=== PATIENT | male | born 1960 | race Two or more races ===

== ENCOUNTER 2022-11-22 23:12 | Inpatient (IN) | payer OTHER, MEDICAID ==
[~2022-11-22] VITALS: Ht 177.8 cm; Wt 103.4 kg
[2022-11-22 23:12] VITALS: BP 122/70
--- NOTE | 2022-11-22 23:22 | NUR ---
DR HUIZAR EXAMINING PT AT THIS TIME
--- NOTE | 2022-11-22 23:44 | NUR ---
PT BIBA BLS ER BED 7
--- NOTE | 2022-11-22 23:58 | NUR ---
Dr. Mensah at bedside assessing patient.
[2022-11-23] VITALS (13 sets, daily range): BP systolic 70–127; BP diastolic 40–75
[2022-11-23] MEDS ORDERED: NACL 0.9% 2,000 ML IV ONE (00:05)
[2022-11-23] MEDS ORDERED: PIPERACILLIN/TAZOBACTAM 3.375 GM in DEXTROSE 5% 50 ML IV ONE (00:05)
--- NOTE | 2022-11-23 00:05 | NUR ---
Patient resting in gown, in bed, A/Ox4, chest rise and fall symmetrical, no c/o pain or s/s of distress, patient on monitor, seizure pads/precautions in place.
--- NOTE | 2022-11-23 00:06 | NUR ---
Note caty in ED - 11/23/22 at 0006 by [id number] Patient resting in bed, A/Ox4, chest rise and fall symmetrical, no c/o pain or s/s of distress, patient on monitor, seizure pads/precautions in place.
--- NOTE | 2022-11-23 00:11 | NUR ---
XRAY AT BEDSIDE
--- NOTE | 2022-11-23 00:23 | NUR ---
64YR OLD MALE BIB EMS C/O GEN WEAKNESS . PT IS FROM THE STREETS. A&OX4 PT DENIES CP OR SOB . PT STATES HAVING GEN WEAKNESS FOR DAYS CASANDRA LEGS THIGHS, LOWER BACK MULTIPLE ABRASIONS SCABS ON CASANDRA KNEES. PT HAS BEEN FALLING DUE TO WEAKNESS. ON BEDSIDE MONITOR. PT IS POOR HISTORIAN. HOB IS FLAT PT IS HYPOTENSIVE. BED AT LOWEST POSITION NKDA UNKNOWN
[2022-11-23 00:27] LABS: BASOPHILS % (AUTO) 0.4 % (0.0-2.0); EOSINOPHILS # (AUTO) 0.1 K/uL (0-0.4); EOSINOPHILS % (AUTO) 1.2 % (0.0-4.0); HEMATOCRIT 36.7 % (36-52); HEMOGLOBIN 12.4 g/dL (12.0-18.0); LYMPHOCYTES # (AUTO) 1.1 K/uL (2.0-11.5); LYMPHOCYTES % (AUTO) 11.9 % (20.5-51.1); MEAN CORPUSCULAR HEMOGLOBIN 31 pg (27-31); MEAN CORPUSCULAR HGB CONC 34 g/dL (33-37); MEAN CORPUSCULAR VOLUME 92.9 fL (80-94); MONOCYTES # (AUTO) 0.5 K/uL (0.8-1.0); MONOCYTES % (AUTO) 5.2 % (1.7-9.3); NEUTROPHILS # (AUTO) 7.8 K/uL (1.8-7.7); NEUTROPHILS % (AUTO) 81.3 % (42.2-75.2); PLATELET COUNT (AUTO) 105 K/uL (140-450); RED BLOOD CELL COUNT(AUTO) 3.95 MIL/uL (4.20-6.10); WHITE BLOOD COUNT (AUTO) 9.6 K/uL (4.8-10.8)
[2022-11-23] MEDS ORDERED: PIPERACILLIN/TAZOBACTAM 3.375 GM VIAL IV ONE ×2 (00:53→21:19)
--- NOTE | 2022-11-23 03:39 | NUR ---
PT RESTING IN BED ON BEDSIDE MONITOR. HOB ELEVTED. RESP EVEN AND UNLABORED.
[2022-11-23 04:26] LABS: ALBUMIN 2.6 g/dL (3.4-5.0); ANION GAP 26.5 (8-16); ASPARTATE AMINOTRANSFERASE 829 U/L (15-37); CARBON DIOXIDE 19.8 mmol/L (21-32); CHLORIDE 87 mmol/L (98-107); GFR ARICAN-AMERICAN 19 mL/min (>90); GLUCOSE 395 mg/dL (74-106); LIPASE 27 U/L (73-393); POTASSIUM 4.3 mmol/L (3.5-5.1); SODIUM SERUM 129 mmol/L (136-145); TOTAL BILIRUBIN 1.1 mg/dL (0.0-1.0)
[2022-11-23 04:29] LABS: CREATININE 4.1 mg/dL (0.6-1.3); UREA NITROGEN, BLOOD 91 mg/dL (7-18)
[2022-11-23] MEDS ORDERED: NACL 0.9% 1,000 ML IV ONE (04:45)
--- NOTE | 2022-11-23 05:18 | NUR ---
PENDING ADMISSION ORDERS. COVID SWAB COLLECTED AND SENT
[2022-11-23 05:22] LABS: BILIRUBIN,URINE 1+ (NEGATIVE); BLOOD, URINE 3+ (NEGATIVE); LEUKOCYTE ESTERASE ,URINE TRACE (NEGATIVE); NITRITE, URINE POSITIVE (NEGATIVE); PH,URINE 5.5 (5.0-9.0); UGLUCOSE 1+ (NEGATIVE)
[2022-11-23 05:25] LABS: APPEARANCE,URINE CLOUDY (CLEAR); COLOR,URINE BROWN (YELLOW)
[2022-11-23 05:37] LABS: BARBITURATE, URINE NEGATIVE ng/ml (NEG <=200); BENZODIAZEPINE, URINE NEGATIVE ng/mL (NEG <=200); CANNABINOID, URINE NEGATIVE ng/mL (NEG <=50); COCAINE, URINE NEGATIVE ng/mL (NEG <=300); OPIATE, URINE NEGATIVE ng/mL (NEG <=2000); PHENCYCLIDINE SCREEN,URINE NEGATIVE ng/mL (NEG <=25)
[2022-11-23 05:38] LABS: RBC,URINE 0-5 /HPF (0-5); WBC,URINE 0-5 /HPF (0-5)
[2022-11-23 05:39] LABS: CALCIUM OXALATE CRYSTALS,UR None Seen /HPF (None Seen); HYALINE CASTS, URINE None Seen /LPF (None Seen); TRICHOMONAS,URINE None Seen /HPF (None Seen); TRIPLE PHOSPHATE CRYSTAL,UR None Seen /HPF (None Seen); URIC ACID CRYSTALS,URINE None Seen /HPF (None Seen); URINE AMORPHOUS URATE 3+ /HPF (None Seen); YEAST,URINE None Seen /HPF (None Seen)
[2022-11-23 05:40] LABS: OTHER CASTS, URINE SPERMS MANY /LPF (None Seen)
--- NOTE | 2022-11-23 05:47 | NUR ---
PHOTOS TAKEN OF WOUNDS ON FEET
[2022-11-23] MEDS: NACL 0.9% 1,000 ML IV SCH ×4 (06:16→21:55)
[2022-11-23] MEDS ORDERED: LORazepam 2 MG/ML VIAL IVP ONE (06:50)
[2022-11-23] MEDS ORDERED: LORazepam 2 MG/ML VIAL IM/IVP STA (07:18)
--- NOTE | 2022-11-23 07:31 | NUR ---
pt w/ active tremors. MD HOLLINS called and made aware.
--- NOTE | 2022-11-23 07:31 | NUR ---
REPORT RECEIVED FROM COREY ARCINIEGA. ASSUMED CARE AT THIS TIME
[2022-11-23] MEDS ORDERED: chlordiazePOXIDE 25 MG CAP PO SCH (07:40)
--- NOTE | 2022-11-23 08:00 | NUR ---
PT UNABLE TO TOLERATE PO. MD HOLLINS AWARE. NO NEW ORDERS RECEIVED
--- NOTE | 2022-11-23 08:45 | NUR ---
PT HR REMAINS IN THE 120S AND RECTAL TEMP 103.0. PT UNRESPONSIVE TO PAINFUL STIMULI. DR PAN AT BEDSIDE, ADMITTING DR HOLLINS CONTACTED TO INFORM HIM OF CT HEAD ORDER. TORB ORDER FOR TYLENOL 650MG RECTAL AND TO TRANSFER TO ICU. ORDERS PLACED.
--- NOTE | 2022-11-23 08:52 | NUR ---
PT TAKEN TO CT VIA [place]. ACCOMPANIED BY RN
[2022-11-23] MEDS ORDERED: ACETAMINOPHEN 650 MG SUPP RC ONE (09:15)
--- NOTE | 2022-11-23 09:20 | NUR ---
PATIENT HAS BEEN SCREENED AND CATEGORIZED MODERATE NUTRITION RISK. PATIENT WILL BE SEEN WITHIN 3-5 DAYS OF ADMISSION. 11/23/22-11/28/[address] Addendum: 11/24/22 at [address] FNS CONSULT HAS BEEN RECEIVED FOR WOUNDS ON 11/24/22. PATIENT HAS BEEN RE-SCREENED HIGH RISK AND WILL BE SEEN WITHIN 1-2 DAYS OF RECEIVING THE FNS CONSULT. 11/25/22-11/26/[address]
[2022-11-23] MEDS: ACETAMINOPHEN 650 MG SUPP RC PRN ×2 (09:25→16:52)
--- NOTE | 2022-11-23 10:02 | NUR ---
MD HOLLINS CONTACTED VIA HOSPITAL TEXT REGARDING PELAYO CONTINUATION.
--- NOTE | 2022-11-23 10:06 | NUR ---
ORDER RECEIVED FROM MD HOLLINS . ORDERS CARRIED OUT D/C PIERCE
--- NOTE | 2022-11-23 10:35 | NUR ---
Patient will be admitted to care of MD HOLLINS. Admited to ICU. Will go to room 5. Belongings list completed. Report to AUGUSTA MORRISON .
[2022-11-23] MEDS ORDERED: LORazepam 2 MG/ML VIAL IVP PRN (10:40)
--- NOTE | 2022-11-23 10:45 | NUR ---
Received report from ER nurse Daysi. Received pt altered, unable to answer or nod to questions. On O2@4L/min via nasal cannula. Sinus tachy on the monitor. NPO at this time. Pt incontinent both bowel and bladder. Peripheral IV 18 gauge on right AC intact and patent infusing NS@200ml/hr. Peripheral IV 18 gauge 18 gauge on right hand saline locked. Safety precautions in place.
[2022-11-23] MEDS ORDERED: NOREPINEPHRINE 4 MG/4 ML VIAL IV ONE (11:29)
--- NOTE | 2022-11-23 11:38 | NUR ---
Seen and examined by Dr. Calhoun. New order received to insert PICC line, start levophed and precedex drip and discontinue librium and ativan. Orders noted and carried out.
--- NOTE | 2022-11-23 11:50 | NUR ---
Seen and examined by Dr. Cm.
--- NOTE | 2022-11-23 12:12 | NUR ---
Spoke to Dr. Ruiz on telephone regarding BUN and creatinine results. Per Dr. Ruiz, okay to start PICC line.
--- NOTE | 2022-11-23 12:25 | NUR ---
PICC line nurse Brad at bedside.
--- NOTE | 2022-11-23 13:00 | NUR ---
CXR done at bedside.
[2022-11-23] MEDS: DEXMEDETOMIDINE HCL 400 MCG in NACL 0.9% 96 ML IV PRN ×2 (13:33→22:00)
[2022-11-23] MEDS: PIPERACILLIN/TAZOBACTAM 3.375 GM in DEXTROSE 5% 50 ML IV SCH ×2 (13:51→21:55)
--- NOTE | 2022-11-23 14:52 | NUR ---
REVIEWED PMHX; CXR 11/23/22; PATIENT PRESENTING WITH INCREASED SOB AT 40 BPM SATURATION 92% ON SUPPLEMENTAL OXYGEN AT 4 LPM VIA NC BREATH SOUNDS COARSE RHONCHI BILATERAL GOOD CHEST RISE VERBALLY NON RESPONSIVE TO SAGGER FILLER VERBAL COMMANDS PATIENT APPROPRIATE FOR HHN THERAPY
[2022-11-23] MEDS ORDERED: IPRATROPIUM 0.02% 0.5 MG/2.5 ML NEBU INH ONE (15:07)
[2022-11-23] MEDS ORDERED: ALBUTEROL 0.083% 2.5 MG/3 ML NEBU INH ONE (15:07)
[2022-11-23] MEDS ORDERED: IPRATROPIUM 0.02% 0.5 MG/2.5 ML NEBU INH PRN (15:15)
[2022-11-23] MEDS ORDERED: ALBUTEROL 0.083% 2.5 MG/3 ML NEBU INH PRN (15:15)
[2022-11-23] MEDS: NOREPINEPHRINE 4 MG in DEXTROSE 5% 250 ML IV PRN ×2 (15:42→22:03)
--- NOTE | 2022-11-23 15:45 | NUR ---
Inserted greene catheter using sterile technique with good urine return. Pt tolerated procedure well.
--- NOTE | 2022-11-23 16:15 | NUR ---
Pt with fever. Cooling measures in place. See emar for medication administration.
--- NOTE | 2022-11-23 19:20 | NUR ---
Endorsed to transcript evaluator nurse Haskins for continuity of care.
--- NOTE | 2022-11-23 19:30 | NUR ---
Report received from AUGUSTA RN, PT unresponsive incomprehensible moaning follows minimal command vitals signs stable febrile ongoing cooling measure, pt unresponsive incomprehensible moaning, body tremors, generalized weakness but moved all extremities, multiple skin wounds , ongoing education, reorientation to the unit to alleviates anxiety will continue to monitor ans treat as per care plan
[2022-11-23] MEDS: ALBUTEROL 0.083% 2.5 MG/3 ML NEBU INH SCH (19:49)
[2022-11-23] MEDS: IPRATROPIUM 0.02% 0.5 MG/2.5 ML NEBU INH SCH (19:49)
[2022-11-24] VITALS (24 sets, daily range): BP systolic 100–136; BP diastolic 55–96
[2022-11-24] MEDS ORDERED: PIPERACILLIN/TAZOBACTAM 3.375 GM VIAL IV ONE (05:24)
[2022-11-24 05:45] LABS: BASOPHILS # (AUTO) 0.1 K/uL (0.00-0.22); BASOPHILS % (AUTO) 0.5 % (0.0-2.0); EOSINOPHILS % (AUTO) 0.2 % (0.0-4.0); HEMATOCRIT 29.9 % (36-52); HEMOGLOBIN 10.2 g/dL (12.0-18.0); LYMPHOCYTES # (AUTO) 1.8 K/uL (2.0-11.5); LYMPHOCYTES % (AUTO) 16.1 % (20.5-51.1); MEAN CORPUSCULAR HEMOGLOBIN 31 pg (27-31); MEAN CORPUSCULAR HGB CONC 34 g/dL (33-37); MEAN CORPUSCULAR VOLUME 91.2 fL (80-94); MONOCYTES # (AUTO) 0.4 K/uL (0.8-1.0); MONOCYTES % (AUTO) 3.7 % (1.7-9.3); NEUTROPHILS # (AUTO) 8.9 K/uL (1.8-7.7); NEUTROPHILS % (AUTO) 79.5 % (42.2-75.2); PLATELET COUNT (AUTO) 66 K/uL (140-450); RED BLOOD CELL COUNT(AUTO) 3.27 MIL/uL (4.20-6.10); RED CELL DISTRIBUTION WIDTH 16.1 % (11.6-13.7); WHITE BLOOD COUNT (AUTO) 11.2 K/uL (4.8-10.8)
[2022-11-24] MEDS: NACL 0.9% 1,000 ML IV SCH ×2 (05:46→07:46)
[2022-11-24] MEDS: PIPERACILLIN/TAZOBACTAM 3.375 GM in DEXTROSE 5% 50 ML IV SCH ×3 (05:46→20:01)
[2022-11-24] MEDS: ALBUTEROL 0.083% 2.5 MG/3 ML NEBU INH SCH ×3 (06:58→18:29)
[2022-11-24] MEDS: IPRATROPIUM 0.02% 0.5 MG/2.5 ML NEBU INH SCH ×3 (06:58→18:29)
--- NOTE | 2022-11-24 10:40 | NUR ---
melva zamarripa here , aware of low urine output
--- NOTE | 2022-11-24 10:50 | NUR ---
Bedside report given to DIPAK RN at the bedside for continuity of care as athis time vitals signs stable no changes in care plan and condition.
--- NOTE | 2022-11-24 10:52 | NUR ---
bed bath given to patient at this time with night nurse
--- NOTE | 2022-11-24 11:12 | NUR ---
dr orantes here aware of low urine output, stated he ordered bicarb, awaiting lab results
--- NOTE | 2022-11-24 11:56 | NUR ---
US AT BEDSIDE AT THIS TIME ASSESSING THE KIDNEY FUNCTION
[2022-11-24 12:00] LABS: ALBUMIN 1.1 g/dL (3.4-5.0); ANION GAP 22.2 (8-16); ASPARTATE AMINOTRANSFERASE 2043 U/L (15-37); CARBON DIOXIDE 17.4 mmol/L (21-32); CHLORIDE 100 mmol/L (98-107); GFR ARICAN-AMERICAN 14 mL/min (>90); GLUCOSE 213 mg/dL (74-106); POTASSIUM 4.6 mmol/L (3.5-5.1); SODIUM SERUM 135 mmol/L (136-145)
[2022-11-24 12:06] LABS: CREATININE 5.4 mg/dL (0.6-1.3); UREA NITROGEN, BLOOD 113 mg/dL (7-18)
[2022-11-24] MEDS: SODIUM BICARBONATE 8.4% 50 MEQ in DEXT 5% / NACL 0.45% 1,000 ML IV SCH ×2 (12:13→19:58)
--- NOTE | 2022-11-24 12:41 | NUR ---
DR URIBE (HOSPITALIST) HERE AWARE OF LAB RESULTS
--- NOTE | 2022-11-24 12:57 | NUR ---
WOUND CARE NURSE HERE AT BEDSIDE
--- NOTE | 2022-11-24 13:30 | NUR ---
WOUND CARE EVALUATION NOTES: REASON FOR EVALUATION: BILATERAL FOOT WOUNDS AND MULTIPLE SCABS. WOUND ASSESSMENT COMPLETED ON THIS 89 Y/O MALE ADMITTED TO ICU FOR RHABDOMYOLYSIS AND SEPSIS. PATIENT IS HOMELESS. PAST MEDICAL HISTORY INCLUDES DM II, ETOH ABUSE. ALL ABOVE INFORMATION WAS OBTAINED FROM THE ADMISSION H&P. PATIENT IS AAOX1, VERBAL, RESPONDS TO PAIN STIMULI. SKIN IS WARM TO TOUCH. HAS GENERALIZED BILATERAL LOWER EXTREMITY EDEMA. ORAL MUCOSAL MEMBRANES DRY. REQUIRES ASSISTANCE WITH TURNING. PLAN OF CARE AND PRESSURE PREVENTATIVE MEASURES DISCUSSED WITH PATIENT AND PRIMARY RN. PATIENT UNABLE TO COMPREHEND, REINFORCEMENT NEEDED. PATIENT ADMITTED WITH BILATERAL PLANTAR FOOT WOUNDS AND MULTIPLE SCABS THROUGHOUT BODY. COMORBIDITIES RELATED TO FURTHER SKIN BREAKDOWN SUCH DECREASED MOBILITY, HOMELESSNESS, AND S/S OF DEHYDRATION. INTEGUMENTARY: - RIGHT UPPER PLANTAR FOOT 5 X 7 X 0.1 CM OPEN BLISTER WOUND. WOUND BED DRY, PINK, MIXED WITH SPOTS OF COMPLETELY HEALED GRANULATION TISSUE. PERIWOUND DRY, INTACT. - LEFT MEDIAL DORSAL TO PLANTAR FOOT 4 X 4 X 0.1 UNSTAGEABLE WOUND. WOUND BED BLACK, NON-BLANCHABLE, ROUGH, NO DISCHARGE. PERIWOUND DRY, INTACT. - RIGHT KNEE CLOSED SCAB 7 X 3 X 0 CM. NO DISCHARGE, PERIWOUND INTACT. - RLE SCAB 3 X 2 X 0 CM. NO DISCHARGE. PERIWOUND INTACT. - LEFT KNEE CLOSED SCAB 5.5 X 3.5 X 0 CM. NO DRAINAGE, PERIWOUND INTACT. - RIGHT BUTTOCK ECCHYMOSIS 5 X 3 X 0 CM. NO DISCHARGE. PERIWOUND INTACT. - PERINEAL AND SCROTAL MOISTURE ASSOCIATED DERMATITIS. PERIWOUND RED, INTACT. - LEFT HIP REDNESS 10 X 7 X 0 CM. NO DISCHARGE. PERIWOUND INTACT. RECOMMENDATIONS: - RIGHT UPPER PLANTAR FOOT: CLEANSE WITH NS, PAT DRY, COVER WITH GAUZE, AND SECURE WITH ELMO BANDAGE DAILY AND PRN IF SOILED. - LEFT MEDIAL DORSAL TO PLANTAR FOOT: CLEANSE WITH NS, PAT DRY, APPLY BETADINE SWAB ON WOUND AND PERIWOUND, COVER WITH GAUZE, AND SECURE WITH ELMO BANDAGE DAILY AND PRN IF SOILED. - RIGHT KNEE CLOSED SCAB: CLEANSE WITH NS, PAT DRY AND LEAVE VIANCA Q3DAYS AND PRN IF SOILED. - RLE SCAB: CLEANSE WITH NS, PAT DRY, AND LEAVE VIANCA Q3DAYS AND PRN IF SOILED. - LEFT KNEE CLOSED SCAB: CLEANSE WITH NS, PAT DRY, AND LEAVE VIANCA Q3DAYS AND PRN IF SOILED. - RIGHT BUTTOCK ECCHYMOSIS: CLEANSE WITH NS, PAT DRY, AND COVER WITH ISLAND DRESSING Q3DAYS AND PRN IF SOILED. - PERINEAL AND SCROTAL MOISTURE ASSOCIATED DERMATITIS: CLEANSE WITH SOAPY WATER OR NS, PAT DRY, APPLY HYDRAGUARD CREAM THROUGHOUT AREA, AND LEAVE VIANCA DAILY AND PRN IF SOILED. - LEFT HIP REDNESS:CLEANSE WITH NS, PAT DRY, APPLY FOAM DRESSING FOR PROTECTION Q3 DAYS AND PRN IF SOILED. - OFFLOAD BILATERAL HEELS BY PLACING BILATERAL HEEL PROTECTORS. - TURN AND REPOSITION PATIENT Q2H TO LEFT AND RIGHT SIDE TO OFFLOAD SACRALCOCCYX. - ASSESS AND MONITOR SKIN CONDITION DURING POSITION CHANGE. PLEASE PAY ATTENTION TO SACRALCOCCYX AND HEELS. - KEEP SKIN DRY AND CLEAN AT ALL TIMES. - RD CONSULT - CUSTOMER DATA TECHNICIAN CONSULT. RECOMMENDATIONS DISCUSSED WITH PRIMARY RN. WILL FOLLOW-UP PATIENT Q7-10 DAYS AND PRN. PLEASE CONTACT WOUND CARE NURSE FOR ANY CONCERNS AND CHANGES IN WOUND CONDITION.
[2022-11-24] MEDS: NOREPINEPHRINE 4 MG in DEXTROSE 5% 250 ML IV PRN (14:39)
--- NOTE | 2022-11-24 16:02 | NUR ---
DC PLANNING PATIENT IS A 64 YEAR OLD HOMELESS MALE ADMITTED 11/22/2022 FOR ELEVATEDTROPONIN,UTI,RHABDOMYOLYSIS,LEANDRO,GENERALIZED WEAKNESS AND ALCOHOL ABUSE. PT HAS HX OF DM2 AND ALCOHOL ABUSE . AMANDA FOLLOWING .CM TO FOLLOW Addendum: 11/26/22 at 1627 by WILLIE REYES CM DC PLANNING PT WAS INTUBATED TODAY FOR DESATURATION. ON PRECEDEX,LEVOPHED,FENTANYL,AND PROPOFOL DRIPS. ZOSYN TO CONTINUE.AMANDA FOLLOWING.CM TO FOLLOW
--- NOTE | 2022-11-24 18:35 | NUR ---
PT RECEIVING BREATHING TREATMENT AT THIS TIME
[2022-11-24] MEDS: LORazepam 1 MG TAB PO SCH (20:36)
[2022-11-24] MEDS: LORazepam 2 MG/ML VIAL IVP PRN (22:16)
--- NOTE | 2022-11-24 23:33 | NUR ---
LOWERED FIO2 TO 2LNC. SATS 97%. NO SOB NOTED
[2022-11-25] VITALS (23 sets, daily range): BP systolic 97–134; BP diastolic 50–85
[2022-11-25] MEDS: LORazepam 2 MG/ML VIAL IVP PRN ×3 (00:27→07:41)
[2022-11-25] MEDS: SODIUM BICARBONATE 8.4% 50 MEQ in DEXT 5% / NACL 0.45% 1,000 ML IV SCH ×4 (00:41→21:08)
[2022-11-25] MEDS: HYDRAGUARD CREAM TP SCH ×2 (00:41→13:33)
[2022-11-25] MEDS: DEXMEDETOMIDINE HCL 400 MCG in NACL 0.9% 96 ML IV PRN ×2 (03:22→08:37)
[2022-11-25 05:42] LABS: BASOPHILS # (AUTO) 0.1 K/uL (0.00-0.22); BASOPHILS % (AUTO) 0.6 % (0.0-2.0); EOSINOPHILS % (AUTO) 0.2 % (0.0-4.0); HEMATOCRIT 27.6 % (36-52); HEMOGLOBIN 9.6 g/dL (12.0-18.0); LYMPHOCYTES # (AUTO) 0.3 K/uL (2.0-11.5); LYMPHOCYTES % (AUTO) 3.7 % (20.5-51.1); MEAN CORPUSCULAR HEMOGLOBIN 31 pg (27-31); MEAN CORPUSCULAR HGB CONC 35 g/dL (33-37); MONOCYTES # (AUTO) 0.3 K/uL (0.8-1.0); MONOCYTES % (AUTO) 3.7 % (1.7-9.3); NEUTROPHILS # (AUTO) 8.6 K/uL (1.8-7.7); NEUTROPHILS % (AUTO) 91.8 % (42.2-75.2); PLATELET COUNT (AUTO) 51 K/uL (140-450); RED BLOOD CELL COUNT(AUTO) 3.07 MIL/uL (4.20-6.10); RED CELL DISTRIBUTION WIDTH 16.2 % (11.6-13.7); WHITE BLOOD COUNT (AUTO) 9.4 K/uL (4.8-10.8)
[2022-11-25] MEDS: PIPERACILLIN/TAZOBACTAM 3.375 GM in DEXTROSE 5% 50 ML IV SCH ×3 (06:01→21:07)
[2022-11-25] MEDS: LORazepam 1 MG TAB PO SCH ×3 (06:05→21:07)
[2022-11-25] MEDS: FOLIC ACID 1 MG TAB PO SCH (09:00)
--- NOTE | 2022-11-25 09:14 | NUR ---
DR URIBE CALLED FOR UPDATE
[2022-11-25] MEDS: MULTIVITAMIN 1 TAB PO SCH (10:21)
[2022-11-25] MEDS: THIAMINE 100 MG TAB PO SCH (10:22)
--- NOTE | 2022-11-25 10:33 | NUR ---
DR HARRELL HERE WILL KALYAN JI FOR HD
[2022-11-25 14:10] LABS: CKMB RELATIVE INDEX 0.7 (0.0-2.5); CREATINE KINASE MB 156.7 ng/mL (0-3.6)
[2022-11-25] MEDS: IPRATROPIUM 0.02% 0.5 MG/2.5 ML NEBU INH SCH ×3 (16:20→20:30)
[2022-11-25] MEDS: ALBUTEROL 0.083% 2.5 MG/3 ML NEBU INH SCH ×3 (16:20→20:30)
--- NOTE | 2022-11-25 16:45 | NUR ---
11/25/22 RD INITIAL ASSESSMENT COMPLETED PLEASE REFER TO NUTRITION ASSESSMENT UNDER CARE ACTIVITY FOR ESTIMATED NUTRITIONAL NEEDS. 1. MONITOR NPO STATUS 2. WHEN/IF MEDICALLY APPROPRIATE TO BEGIN PO DIET, RECOMMEND CCHO 60 GM DIET WITH GERA BID FOR WOUND SUPPORT TOLERATED -GERA BID PROVIDES 160 KCAL AND [address] TO FOLLOW-UP 2-3 DAYS, HIGH RISK REVIEWED BY NUHA HUSSEIN RD
--- NOTE | 2022-11-25 19:24 | NUR ---
DAVIONAR TO RONNELL(RN)
[2022-11-26] VITALS (25 sets, daily range): BP systolic 84–129; BP diastolic 48–72
[2022-11-26] MEDS: HYDRAGUARD CREAM TP SCH ×2 (00:28→15:00)
[2022-11-26] MEDS: DEXMEDETOMIDINE HCL 400 MCG in NACL 0.9% 96 ML IV PRN ×2 (00:32→04:31)
[2022-11-26] MEDS: LORazepam 2 MG/ML VIAL IVP PRN (04:29)
[2022-11-26 05:31] LABS: BASOPHILS % (AUTO) 0.2 % (0.0-2.0); EOSINOPHILS % (AUTO) 0.4 % (0.0-4.0); HEMOGLOBIN 10.3 g/dL (12.0-18.0); LYMPHOCYTES # (AUTO) 0.3 K/uL (2.0-11.5); LYMPHOCYTES % (AUTO) 3.9 % (20.5-51.1); MEAN CORPUSCULAR HEMOGLOBIN 31 pg (27-31); MEAN CORPUSCULAR HGB CONC 34 g/dL (33-37); MEAN CORPUSCULAR VOLUME 89.4 fL (80-94); MONOCYTES # (AUTO) 0.2 K/uL (0.8-1.0); MONOCYTES % (AUTO) 2.6 % (1.7-9.3); NEUTROPHILS # (AUTO) 7.6 K/uL (1.8-7.7); NEUTROPHILS % (AUTO) 92.9 % (42.2-75.2); PLATELET COUNT (AUTO) 52 K/uL (140-450); RED BLOOD CELL COUNT(AUTO) 3.36 MIL/uL (4.20-6.10); RED CELL DISTRIBUTION WIDTH 16.5 % (11.6-13.7); WHITE BLOOD COUNT (AUTO) 8.2 K/uL (4.8-10.8)
[2022-11-26] MEDS: SODIUM BICARBONATE 8.4% 50 MEQ in DEXT 5% / NACL 0.45% 1,000 ML IV SCH ×2 (05:42→13:57)
[2022-11-26] MEDS: PIPERACILLIN/TAZOBACTAM 3.375 GM in DEXTROSE 5% 50 ML IV SCH (05:42)
[2022-11-26] MEDS: LORazepam 1 MG TAB PO SCH (05:44)
--- NOTE | 2022-11-26 07:10 | NUR ---
RECEIVED BEDSIDE REPORT FROM [facility] RN, FOR CONTINUITY OF CARE. PT LETHARGIC, RESPONDS TO EXTERNAL STIMULI, PUPILS BRISK RXN TO LIGHT 2MM, MINIMAL MOVEMENT OF EXTREMITIES. SR ON MONITOR, PICC TO FAHAD INFUSING LEVOPHED AT 2 MCG/MIN, SODIUM BICARB DRIP AT 150 ML/HR, PRECEDEX AT 1 MCG/KG/HR, AND NS TKO. GENERALIZED NONPITTING EDEMA. ROOM AIR, O2 SAT WNL, TACHYPNEIC. F/C TO GRAVITY. HD CATH TO RIJ. MODERATE WEAKNESS THROUGHOUT. MULTIPLE WOUNDS, SEE WOUND ASSESSMENT. HOB 30 DEGREES, BED LOCKED AND IN LOWEST POSITION.
[2022-11-26] MEDS ORDERED: ALBUTEROL SULFATE/IPRATROPIU 3 ML SOL IH ONE (07:48)
[2022-11-26] MEDS: THIAMINE 100 MG TAB PO SCH (09:00)
[2022-11-26] MEDS: MULTIVITAMIN 1 TAB PO SCH (09:00)
[2022-11-26] MEDS: FOLIC ACID 1 MG TAB PO SCH (09:00)
--- NOTE | 2022-11-26 09:01 | NUR ---
PT BREATHING TX IS NOW DUONEB 3ML Q6WA DUE TO A/A BEING LOW IN STOCK.
[2022-11-26 10:02] LABS: ANION GAP 18.2 (8-16); CARBON DIOXIDE 24.3 mmol/L (21-32); POTASSIUM 4.5 mmol/L (3.5-5.1)
[2022-11-26 10:05] LABS: CREATININE 4.5 mg/dL (0.6-1.3)
--- NOTE | 2022-11-26 10:15 | NUR ---
SEEN AND EXAMINED BY DR. BOUDREAUX, ORDERS TO DOWNGRADE RECEIVED.
--- NOTE | 2022-11-26 10:36 | NUR ---
SEEN AND EXAMINED BY DR. GOLDSTEIN. ORDERS RECEIVED FOR PT TO STAY IN ICU, CANCEL DOWNGRADE, DECREASE SODIUM BICARBONATE DRIP TO 50 ML/HR AND STAT CXR.
--- NOTE | 2022-11-26 10:36 | NUR ---
ROUNDED WITH DR. GOLDSTEIN. ORDERS FOR AN ABG WERE PLACED.
--- NOTE | 2022-11-26 10:45 | NUR ---
ABG RESULTS GIVEN TO DR. GOLDSTEIN NO NEW ORDERS AT THIS TIME. WILL CONTINUE TO MONITOR PT CLOSELY. HR 83 SPO2 93% ON RA.
[2022-11-26] MEDS: PIPERACILLIN/TAZOBACTAM 2.25 GM in DEXTROSE 5% 50 ML IV SCH ×2 (12:02→20:35)
[2022-11-26] MEDS: ACETAMINOPHEN 650 MG SUPP RC PRN (12:27)
--- NOTE | 2022-11-26 12:27 | NUR ---
PT TEMP 100.9, ADMINISTERED PRN TYLENOL SUPPOSITORY.
[2022-11-26] MEDS: ALBUTEROL SULFATE/IPRATROPIU 3 ML SOL IH SCH ×2 (13:01→19:46)
--- NOTE | 2022-11-26 13:29 | NUR ---
NOTIFIED NURSE INCREASE RESP RATE FOR PT BOTH AGREED TO CONTACT ANGELITA ABUT OUR CONCERN. DR GOLDSTEIN GAVE ORDER TO HAVE ER DR GUILLAUME PT
--- NOTE | 2022-11-26 13:29 | NUR ---
NOTIFIED DR. GOLDSTEIN OF INCREASING WORK OF BREATHING AND LETHARGY. ORDERS TO INTUBATE. PROPOFOL AND FENTANYL FOR SEDATION.
[2022-11-26] MEDS ORDERED: fentaNYL citrate 1 MG in NACL 0.9% 80 ML IV PRN (13:30)
[2022-11-26] MEDS ORDERED: PROPOFOL 1000 MG/100 ML PREMIX 100 ML IV ONE (13:31)
--- NOTE | 2022-11-26 13:55 | NUR ---
ORALLY INTUBATED BY ER DOCTOR AND RT. CXR CONFIRMED PLACEMENT.
--- NOTE | 2022-11-26 13:55 | NUR ---
RT RN AND ER DR AT BEDSIDE PREOXYGENATED PT WITH AMBU BAG ER DR INTUBATED WITH 7.5 ETT SECURED AT 26@ GUM. POSITIVE COLOR CHANGE ON CO2 DETECTOR, BILATERL BREATH SOUNDS. CHEST XRAY CONFIRMED PLACEMENT. VENT IS PLUGGED INTO RED OUTLET, ALARMS AUDIBLE AND SET, AMBU BAG AT BEDSIDE. VENT SETTINGS FOR PT IS 450 RR18 +5 50%. PT TOLERATING WELL. ABG TO FOLLOW. WILL CONTINUE TO MONITOR.
[2022-11-26] MEDS: PROPOFOL 1000 MG/100 ML PREMIX 100 ML IV PRN ×2 (14:00→20:34)
[2022-11-26] MEDS: fentaNYL citrate - 50mL vial 2.5 MG in NACL 0.9% 200 ML IV PRN (14:15)
[2022-11-26] MEDS ORDERED: ALBUMIN HUMAN 25% 100 ML IV ONE (14:59)
--- NOTE | 2022-11-26 15:07 | NUR ---
DC PLANNING ATTEMPTED TO MEET PT AT BEDSIDE TP COMPLETE ASSESSMENT, HOWEVER PT CURRENTLY BEING INTUBATED. SW TO FOLLOW Addendum: 11/28/22 at 1617 by Elmira Sharpe PER NOTES, PT UNABLE TO FOLLOW COMMANDS. KATERINE OUTREACHED TO ICU NURSE CHAO TO INQUIRE ON ANY VISITORS AND OR CALLS FOR PT. CHAO REPORTS NO CALLS AND OR VISITORS SEEN AT BEDSIDE. Addendum: 12/03/22 at 1312 by Elmira SOMMERS outreached to Misael malhotra, and spoke with Paz pd medical receptionist medical assistant. Paz reports being unable to provide information even if information were found on pt. Addendum: 12/04/22 at 0927 by Elmira Sharpe SS OUTREACHED TO [facility], AND SPOKE WITH PAZ. INQUIRED ON MISSING PERSONS REPORTS FOR PT. PAZ REPORTS NO MISSING REPORTS SHOWING FOR PT. OUTREACHED TO [facility], , AND SPOKE WITH CATIA, YOKOIRED ON MISSING PERSON, NO MISSING PERSON REPORTS FOUND FOR PT. OUTREACHED TO [facility], AND SPOKE WITH TARIQ WHO REPORTED NO MISSING REPORTS FOUND FOR PT. OUTREACHED TO [facility], AND SPOKE WITH CIERRA, CIERRA REPORTS NO MISSING PERSON REPORTS FOUND FOR PT.
[2022-11-26] MEDS ORDERED: VASOPRESSIN 20 UNITS in NACL 0.9% 250 ML IV SCH (15:10)
[2022-11-26] MEDS ORDERED: ALBUMIN HUMAN 25% 100 ML IV SCH (15:15)
[2022-11-26] MEDS: NOREPINEPHRINE 4 MG in DEXTROSE 5% 250 ML IV PRN (15:16)
[2022-11-26] MEDS ORDERED: ROCURONIUM 50 MG/5 ML VIAL IV ONE (15:45)
[2022-11-26] MEDS ORDERED: ETOMIDATE 20 MG/10 ML VIAL IVP ONE (15:45)
--- NOTE | 2022-11-26 16:37 | NUR ---
PAGED REGARDING ABG RESULTS WAITING FOR CALL BACK. ETT SECURED @26 TEETH/GUM. VENT ALARMS ON AND FUNCTIONING. PT ON DIALYSIS AT THIS TIME.
--- NOTE | 2022-11-26 17:30 | NUR ---
ADVANCED NGT 9 CM PER CXR IMPRESSION.
--- NOTE | 2022-11-26 19:20 | NUR ---
ENDORSED BEDSIDE REPORT TO ROUGH RICE TENDER RN FOR CONTINUITY OF CARE.
--- NOTE | 2022-11-26 19:32 | NUR ---
Received report from day shift RN. The patient is AOx0, intubated today, sadated, NG tube to right nare, had HD today with 1L out put via right intrajugular crystal catheter. Right upper arm picc infusing Levo at 10mcg, sodium bicarb at 50ml/hr , propfol at 30mcg/min, and NS tko. Multiple skin issues, pictures took see paper chat. Forehead skin tears open to air. BLE diabetic foot wound wrapped with dressing.
[2022-11-27] VITALS (31 sets, daily range): BP systolic 77–135; BP diastolic 46–68
[2022-11-27] MEDS ORDERED: NOREPINEPHRINE 4 MG/4 ML VIAL IV ONE (00:08)
[2022-11-27] MEDS: HYDRAGUARD CREAM TP SCH ×2 (00:37→13:03)
[2022-11-27] MEDS: PROPOFOL 1000 MG/100 ML PREMIX 100 ML IV PRN ×4 (02:23→20:11)
[2022-11-27] MEDS: PIPERACILLIN/TAZOBACTAM 2.25 GM in DEXTROSE 5% 50 ML IV SCH ×3 (06:18→20:08)
[2022-11-27 06:19] LABS: BASOPHILS # (AUTO) 0.1 K/uL (0.00-0.22); BASOPHILS % (AUTO) 0.7 % (0.0-2.0); EOSINOPHILS # (AUTO) 0.1 K/uL (0-0.4); EOSINOPHILS % (AUTO) 0.6 % (0.0-4.0); HEMATOCRIT 28.7 % (36-52); HEMOGLOBIN 9.7 g/dL (12.0-18.0); LYMPHOCYTES # (AUTO) 1.1 K/uL (2.0-11.5); LYMPHOCYTES % (AUTO) 12.9 % (20.5-51.1); MEAN CORPUSCULAR HEMOGLOBIN 31 pg (27-31); MEAN CORPUSCULAR HGB CONC 34 g/dL (33-37); MEAN CORPUSCULAR VOLUME 91.3 fL (80-94); MONOCYTES # (AUTO) 0.1 K/uL (0.8-1.0); MONOCYTES % (AUTO) 1.2 % (1.7-9.3); NEUTROPHILS # (AUTO) 7.4 K/uL (1.8-7.7); NEUTROPHILS % (AUTO) 84.6 % (42.2-75.2); PLATELET COUNT (AUTO) 66 K/uL (140-450); RED BLOOD CELL COUNT(AUTO) 3.14 MIL/uL (4.20-6.10); WHITE BLOOD COUNT (AUTO) 8.8 K/uL (4.8-10.8)
[2022-11-27 06:21] LABS: ANION GAP 14.8 (8-16); CREATININE 4.4 mg/dL (0.6-1.3); POTASSIUM 4.8 mmol/L (3.5-5.1)
--- NOTE | 2022-11-27 07:07 | NUR ---
patien's RR was increased avoe 45, increaqsed propfol to 40mcg. levephed to 20mcg, fentanyl remains at 50mcg. patient's vital signs stable at this time full body multople wound care need wound care consult, nutrition consult and acute check to be addressed.
[2022-11-27] MEDS ORDERED: DEXTROSE 50% 50 ML SYR IVP PRN (08:50)
[2022-11-27] MEDS: MULTIVITAMIN 1 TAB PO SCH (08:50)
[2022-11-27] MEDS: FOLIC ACID 1 MG TAB PO SCH (08:50)
[2022-11-27] MEDS: THIAMINE 100 MG TAB PO SCH (08:50)
[2022-11-27] MEDS: ALBUTEROL SULFATE/IPRATROPIU 3 ML SOL IH SCH ×3 (09:12→19:24)
[2022-11-27] MEDS: BLOOD GLUCOSE MONITORING 1 DEV DEV FS SCH ×3 (11:08→21:50)
[2022-11-27] MEDS: INSULIN LISPRO SLIDING SCALE 100 UNITS/ML VIAL SUBQ PRN ×3 (11:10→21:52)
--- NOTE | 2022-11-27 11:10 | NUR ---
BREATHING TRIAL FAILED. RT PLACED PATIENT ON SBT CPAP 5 PS 10 AND FIO2 40 %. PATIENT DID NOT TOLERATE BECAME TACHYCARDIC AND RR WAS ON 40'S. STARTED BACK ON PROPOFOL PER PROTOCOL. WILL CONTINUE TO MONITOR.
--- NOTE | 2022-11-27 11:14 | NUR ---
PT ONLY LASTED ABOUT TEN MINUTES OF SBT CPAP 5 PS 10 AND FIO2 40%. PT RR INCREASED TO 40 AND BECAME TACHYCARDIC. NURSE MADE AWARE.
[2022-11-27] MEDS: NOREPINEPHRINE 16 MG in DEXTROSE 5% 250 ML IV PRN (14:22)
--- NOTE | 2022-11-27 16:00 | NUR ---
DR. VELÁZQUEZ HERE AND SEEN THE PATIENT. UPDATED PATIENT STATUS.
--- NOTE | 2022-11-27 16:50 | NUR ---
11/27/22 FOLLOW UP COMPLETED PLEASE REFER TO NUTRITION ASSESSMENT UNDER CARE ACTIVITY FOR ESTIMATED NUTRITIONAL NEEDS. 1. CONTINUE NPO STATUS, PER MD 2. WHEN/ IF MEDICALLY APPROPRIATE, AND IF PT GETS GTUBE, RECOMMEND NEPRO @35 ML/HR, FWF 100 ML Q6H, WITH GERA BID (PROVIDES 160 KCAL, 5 G PROTEIN) - WITH PROPOFOL @19.704 ML/HR (520 KCALS), WILL PROVIDE 1080 ML TOTAL VOLUME, 2192 KCALS, 73 G PROTEIN, AND 1010 ML FREE WATER, MEETING 97% ESTIMATED CALORIE NEEDS AND 81% ESTIMATED PROTEIN NEEDS - IF PT IS NOT ON PROPOFOL, RECOMMEND NEPRO @45 ML/HR, FWF 100 ML Q6H, WITH GERA BID, WILL PROVIDE 1080 ML TOTAL VOLUME, 2104 KCALS, 92 G PROTEIN, AND 1185 ML FREE WATER, MEETING 93% ESTIMATED CALORIE NEEDS AND 100% ESTIMATED PROTEIN NEEDS 3. MONITOR LAB VALUES. 4. RD TO FOLLOW-UP 2-3 DAYS, HIGH RISK REVIEWED BY NHUA HUSSEIN RD
[2022-11-27] MEDS: ACETAMINOPHEN 650 MG SUPP RC PRN (21:05)
[2022-11-28] VITALS (29 sets, daily range): BP systolic 78–123; BP diastolic 44–74
[2022-11-28] MEDS: HYDRAGUARD CREAM TP SCH ×2 (01:00→12:17)
[2022-11-28] MEDS: PROPOFOL 1000 MG/100 ML PREMIX 100 ML IV PRN ×3 (02:00→20:18)
--- NOTE | 2022-11-28 02:19 | NUR ---
2315 LOWERED FIO2 TO 35%
[2022-11-28 05:56] LABS: BASOPHILS % (AUTO) 0.4 % (0.0-2.0); EOSINOPHILS % (AUTO) 0.4 % (0.0-4.0); HEMATOCRIT 27.3 % (36-52); HEMOGLOBIN 9.1 g/dL (12.0-18.0); LYMPHOCYTES % (AUTO) 9.1 % (20.5-51.1); MEAN CORPUSCULAR HEMOGLOBIN 30 pg (27-31); MEAN CORPUSCULAR HGB CONC 33 g/dL (33-37); MEAN CORPUSCULAR VOLUME 90.3 fL (80-94); MONOCYTES # (AUTO) 0.2 K/uL (0.8-1.0); MONOCYTES % (AUTO) 1.9 % (1.7-9.3); NEUTROPHILS # (AUTO) 9.9 K/uL (1.8-7.7); NEUTROPHILS % (AUTO) 88.2 % (42.2-75.2); PLATELET COUNT (AUTO) 80 K/uL (140-450); RED BLOOD CELL COUNT(AUTO) 3.02 MIL/uL (4.20-6.10); RED CELL DISTRIBUTION WIDTH 16.8 % (11.6-13.7); WHITE BLOOD COUNT (AUTO) 11.3 K/uL (4.8-10.8)
[2022-11-28] MEDS: PIPERACILLIN/TAZOBACTAM 2.25 GM in DEXTROSE 5% 50 ML IV SCH ×3 (06:00→20:16)
--- NOTE | 2022-11-28 06:00 | NUR ---
Pt. sedated on propofol and Fentanyl Drips with Kelechi. SWR in place. SR to ST on the monitor. T=102.7; Tylenol supp. given. Cooling measures implemented. CHG bath rendered. Kept clean and dry. On vent via ETT with W7Tzd=12 to 100% on 35% FiO2 on current settings. Secretions suctioned prn. Remains on Levophed Drip to keep SBP>90mmHg. Will cont. to monitor cardiac and resp. status.
[2022-11-28] MEDS: NOREPINEPHRINE 16 MG in DEXTROSE 5% 250 ML IV PRN ×2 (06:38→07:00)
[2022-11-28] MEDS: ALBUTEROL SULFATE/IPRATROPIU 3 ML SOL IH SCH ×3 (06:52→19:22)
--- NOTE | 2022-11-28 07:00 | NUR ---
RECEIVED PT AC 18,450,+5,35%. VENT WHEELS ARE LOCKED, PLUGGED INTO RED OUTLET, AMBUBAG AT BEDSIDE, ALARMS ARE SET AND AUDIBLE. DAILY CPAP AT 0800. WILL CONTINUE TO MONITOR.
[2022-11-28] MEDS: BLOOD GLUCOSE MONITORING 1 DEV DEV FS SCH ×4 (07:46→21:32)
[2022-11-28] MEDS: INSULIN LISPRO SLIDING SCALE 100 UNITS/ML VIAL SUBQ PRN ×4 (07:52→21:34)
[2022-11-28] MEDS: FOLIC ACID 1 MG TAB PO SCH (08:32)
[2022-11-28] MEDS: MULTIVITAMIN 1 TAB PO SCH (08:33)
[2022-11-28] MEDS: THIAMINE 100 MG TAB PO SCH (08:33)
--- NOTE | 2022-11-28 09:41 | NUR ---
PT CURRENTLY ON SBT 06/18. VOLUMES ARE GOOD 500-800. BLOOD PRESSURE IS STABLE, SATURATION 92% ON 40%FIO2. SLIGHTLY OPENS EYES. UNABLE TO FOLLOW COMMANDS AT THIS TIME. TOTAL TIME ALMOST 2 HOURS. WILL CONTINUE TO MONITOR.
--- NOTE | 2022-11-28 11:17 | NUR ---
[id number] TO 1000 AM TODAY WE NAD WEANED THE PT. TO cpap 12/5 AND REDUCED ALL SEDATION DRIPS AND TOLERATED WELL
[2022-11-28 15:09] LABS: ANION GAP 17.1 (8-16); CARBON DIOXIDE 25.3 mmol/L (21-32); POTASSIUM 5.4 mmol/L (3.5-5.1)
[2022-11-28 15:15] LABS: CREATININE 6.6 mg/dL (0.6-1.3)
[2022-11-28] MEDS ORDERED: ALBUMIN HUMAN 25% 100 ML IV SCH ×2 (16:30→16:50)
[2022-11-28] MEDS: DEXMEDETOMIDINE HCL 400 MCG in NACL 0.9% 96 ML IV PRN (17:11)
[2022-11-28] MEDS: ACETAMINOPHEN 650 MG SUPP RC PRN (21:26)
[2022-11-29] VITALS (29 sets, daily range): BP systolic 93–127; BP diastolic 43–84
[2022-11-29] MEDS: HYDRAGUARD CREAM TP SCH ×2 (01:00→13:00)
[2022-11-29] MEDS: PIPERACILLIN/TAZOBACTAM 2.25 GM in DEXTROSE 5% 50 ML IV SCH (05:46)
[2022-11-29 06:42] LABS: ANION GAP 22.6 (8-16); CARBON DIOXIDE 21.3 mmol/L (21-32); POTASSIUM 4.9 mmol/L (3.5-5.1)
--- NOTE | 2022-11-29 06:45 | NUR ---
Pt. remains sedated on Propofol and Fentanyl Drips. On Levophed Drip to keep SBP>90; titrated to 16mcg/min @ this time. SR to ST on the monitor; no ectopi. On vent via ETT with U8Ytl=56 to 100% on FiO2=35% on current settings. Secretions suctioned prn. Temp.=100.8 deg. F; given Tylenol x 1 and cooling measures initiated. Kept clean and dry. Pt. had 2 BM. Wounds cleansed and covered with optifoam. Repositioned. Will continue cardiac and resp. monitoring.
[2022-11-29 06:50] LABS: CREATININE 5.3 mg/dL (0.6-1.3)
[2022-11-29] MEDS: ALBUTEROL SULFATE/IPRATROPIU 3 ML SOL IH SCH ×3 (07:00→20:01)
--- NOTE | 2022-11-29 07:25 | NUR ---
RECEIVED PATIENT FROM HAILY, RN. PATIENT RESTING IN BED WITH EYES CLOSED. RESPONSIVE TO TOUCH AND VOICE. BILATERAL WRIST RESTRAINTS IN PLACE. NO S/S OF INJURY. NGT TO RIGHT NARIS CLAMPED. ETT TO VENT; AC VC 35% FIO2, 450 VT, 18 RR, 5 PEEP. PICC LINE TO RIGHT UPPER ARM, APPEARS WNL, RUNNING PROPOFOL AT 15MCG/KG/MIN, NOREPINEPHRINE AT 16 MCG/MIN, AND FENTANYL 50 MCG/KG/HR. F/C IN PLACE DRAINING SCANT AMOUNT OF DARK JULIA URINE; HAS SCHEDULED DIALYSIS PER ORDERS. CURRENTLY SR ON MONITOR. RIGHT IJ MARGY CATH APPEARS WNL. WILL CONTINUE TO MONITOR.
[2022-11-29] MEDS: BLOOD GLUCOSE MONITORING 1 DEV DEV FS SCH ×3 (07:30→18:43)
[2022-11-29] MEDS: PROPOFOL 1000 MG/100 ML PREMIX 100 ML IV PRN ×2 (08:06→19:34)
--- NOTE | 2022-11-29 08:10 | NUR ---
DR. WRIGHT HERE TO SEE PATIENT. PER DR. WRIGHT OK TO START TUBE FEEDING PER DIETARY RECOMMENDATIONS. ORDERS NOTED AND CARRIED OUT. DIETARY NOTIFIED OF ORDER.
[2022-11-29] MEDS: MULTIVITAMIN 1 TAB PO SCH (08:22)
[2022-11-29] MEDS: FOLIC ACID 1 MG TAB PO SCH (08:22)
[2022-11-29] MEDS: THIAMINE 100 MG TAB PO SCH (08:22)
[2022-11-29 08:44] LABS: BASOPHILS # (AUTO) 0.1 K/uL (0.00-0.22); BASOPHILS % (AUTO) 0.4 % (0.0-2.0); EOSINOPHILS % (AUTO) 0.2 % (0.0-4.0); HEMATOCRIT 25.8 % (36-52); HEMOGLOBIN 8.7 g/dL (12.0-18.0); LYMPHOCYTES # (AUTO) 0.7 K/uL (2.0-11.5); LYMPHOCYTES % (AUTO) 5.4 % (20.5-51.1); MEAN CORPUSCULAR HEMOGLOBIN 31 pg (27-31); MEAN CORPUSCULAR HGB CONC 34 g/dL (33-37); MEAN CORPUSCULAR VOLUME 90.8 fL (80-94); MONOCYTES # (AUTO) 0.2 K/uL (0.8-1.0); MONOCYTES % (AUTO) 1.5 % (1.7-9.3); NEUTROPHILS % (AUTO) 92.5 % (42.2-75.2); PLATELET COUNT (AUTO) 90 K/uL (140-450); RED BLOOD CELL COUNT(AUTO) 2.84 MIL/uL (4.20-6.10); RED CELL DISTRIBUTION WIDTH 16.5 % (11.6-13.7)
--- NOTE | 2022-11-29 09:52 | NUR ---
PT LASTED 30 MINUTES ON 08/18. VOLUMES WERE BETWEEN 600-850. BLOOD PRESSURE STABLE, SATURATION IN THE HIGH 90S, RESPIRATORY RATE 16-20BPM. RSBI IN THE 20S. OPENS EYES, BUT DOESN'T FOLLOW COMMANDS. PT CURRENTLY ON ACVC 18,450,+5,35%. NO DISTRESS NOTED. WILL CONTINUE TO MONITOR.
[2022-11-29] MEDS: NOREPINEPHRINE 16 MG in DEXTROSE 5% 250 ML IV PRN (10:46)
--- NOTE | 2022-11-29 11:18 | NUR ---
HERE TO SEE PATIENT. NO NEW ORDERS FOR NURSING.
--- NOTE | 2022-11-29 11:22 | NUR ---
STARTING SBT FOR [address] ARCHULETA VERBAL ORDER. WILL CONTINUE TO MONITOR.
[2022-11-29] MEDS: LEVOFLOXACIN 500 MG/D5W PREMIX 100 ML IV SCH (11:42)
[2022-11-29] MEDS: INSULIN LISPRO SLIDING SCALE 100 UNITS/ML VIAL SUBQ PRN ×2 (11:54→18:49)
--- NOTE | 2022-11-29 12:44 | NUR ---
PT LASTED 1 HOUR ON SBT 08/18. VOLUME RANGE 550-800. BLOOD PRESSURE WAS STABLE, RESPIRATORY RATE 16-22. SATURATION HIGH 90S. HEART RATE 80S. UNABLE TO FOLLOW COMMANDS. NO DISTRESS NOTED DURING BREATHING TRIAL. PT CURRENTLY BACK ON FULL VENT SUPPORT. WILL CONTINUE TO MONITOR.
[2022-11-29] MEDS: ACETAMINOPHEN 650 MG SUPP RC PRN (13:37)
--- NOTE | 2022-11-29 14:00 | NUR ---
NEPRO TUBE FEEDING STARTED AT 10ML/HR. PLACEMENT CHECK PRIOR TO STARTING TUBE FEEDING; AIR BOLUS AUSCULTATED, GASTRIC CONTENTS ASPIRATED. GERA SUPPLEMENT GIVEN AT THIS TIME. WILL CONTINUE TO MONITOR TOLERANCE TO TF.
[2022-11-29] MEDS ORDERED: SODIUM BICARBONATE 8.4% 150 MEQ in DEXTROSE 5% 1,000 ML IV SCH (15:45)
[2022-11-29] MEDS: CALCIUM GLUC 1 GM/50 mL NS BAG 50 ML IV SCH ×2 (15:56→16:51)
[2022-11-29] MEDS ORDERED: CALCIUM GLUC 1 GM/50 mL NS BAG 50 ML IV SCH (16:15)
[2022-11-29] MEDS: SODIUM BICARBONATE 8.4% 150 MEQ in DEXTROSE 5% 1,000 ML IV SCH (16:51)
[2022-11-29] MEDS: NAFCILLIN 2,000 MG in DEXTROSE 5% 100 ML IV SCH ×3 (16:51→23:46)
--- NOTE | 2022-11-29 19:38 | NUR ---
BEDSIDE REPORT GIVEN TO HAILY HERNANDEZ CONTINUITY OF CARE. PATIENT IS STABLE AT THIS TIME.
[2022-11-30] VITALS (33 sets, daily range): BP systolic 83–110; BP diastolic 45–63
[2022-11-30] MEDS: BLOOD GLUCOSE MONITORING 1 DEV DEV FS SCH ×4 (00:23→17:51)
[2022-11-30] MEDS: INSULIN LISPRO SLIDING SCALE 100 UNITS/ML VIAL SUBQ PRN ×4 (00:26→17:54)
[2022-11-30] MEDS: HYDRAGUARD CREAM TP SCH ×2 (01:00→13:40)
[2022-11-30] MEDS: NAFCILLIN 2,000 MG in DEXTROSE 5% 100 ML IV SCH ×5 (04:58→20:34)
[2022-11-30] MEDS: ACETAMINOPHEN 650 MG SUPP RC PRN (05:31)
[2022-11-30] MEDS: ALBUTEROL SULFATE/IPRATROPIU 3 ML SOL IH SCH ×3 (05:31→19:35)
[2022-11-30] MEDS: PROPOFOL 1000 MG/100 ML PREMIX 100 ML IV PRN ×3 (05:34→23:45)
[2022-11-30 06:40] LABS: ALBUMIN 1.1 g/dL (3.4-5.0); ANION GAP 19.9 (8-16); CARBON DIOXIDE 23.2 mmol/L (21-32); MAGNESIUM 2.3 mg/dL (1.8-2.4); POTASSIUM 4.1 mmol/L (3.5-5.1); TOTAL BILIRUBIN 1.8 mg/dL (0.0-1.0)
[2022-11-30 06:45] LABS: CREATININE 6.3 mg/dL (0.6-1.3)
--- NOTE | 2022-11-30 07:00 | NUR ---
Pt. remains on vent via ETT with O2 Sat=94n to 100% on current settings. Secretions suctioned prn. SR to ST on the scope. Sedated on Propofol, Versed Drips and Precedex initiated as ordered. No seizures noted at this time. Mother updated on pt. status with all questions answered. Will cont. to monitor cardiac, neuro and resp. status. Addendum: 11/30/22 at 0732 by Agency 07 TAMIKO MORRISON Correction; wrong patient. Documentations for ICU Bed 8
--- NOTE | 2022-11-30 07:00 | NUR ---
Pt. remains on vent via ETT with O2 Sat=92 to 100% on current settings. Secretions suctioned prn. SR on the scope. Sedated on Propofol and Fentanyl Drips as ordered. Remains on levophed Drip to keep SBP>90mmHg. Dr. Dias made aware of pt. having diarrhea with orders for GI consult noted and Dr. Wyman contacted. with new orders noted. Stool for OB and C. Dif obtained and sent to lab. Urine culture obtaikned from Car Catheter port and sent to lab. Flexiseal inserted. TF held as ordered and NGT to connect to LIWS. T=100.1 this am; Tylenol adm. MO. Will cont. to monitor cardiac, neuro and resp. status.
--- NOTE | 2022-11-30 07:15 | NUR ---
RECEIVED REPORT FROM [employer] RN DECEMBER FOR CONTINUITY OF CARE. PT SEDATED. ETT TO VENT AC/VC FIO2 35%/VT 450ML/RR 18/PEEP 5. SR ON MONITOR. NONPITTING EDEMA TO BUE. PICC TO FAHAD INFUSING FENTANYL AT 50 MCG/HR, LEVOPHED AT 12 MCG/MIN, PROPOFOL AT 15 MCG/KG/MIN, SODIUM BICARBONATE DRIP AT 60 ML/HR, AND NS TKO 5 ML/HR. NGT IN PLACE INFUSING NEPRO TUBE FEEDING AT 30 ML/HR. FLEXI-SEAL IN PLACE DRAINING LIQUID BLACK/GREEN STOOL. F/C TO GRAVITY MINIMAL URINE OUTPUT, NO BLADDER DISTENTION. BILATERAL SOFT WRIST RESTRAINTS IN PLACE NO S/SX OF INJURY. HEEL PROTECTOR BOOTS IN PLACE FOR PROPHYLAXIS. HOB 30 DEGREES. BED LOCKED AND IN LOWEST POSITION.
[2022-11-30 07:33] LABS: BASOPHILS % (AUTO) 0.3 % (0.0-2.0); EOSINOPHILS % (AUTO) 0.3 % (0.0-4.0); HEMATOCRIT 25.5 % (36-52); HEMOGLOBIN 8.6 g/dL (12.0-18.0); LYMPHOCYTES # (AUTO) 0.5 K/uL (2.0-11.5); MEAN CORPUSCULAR HEMOGLOBIN 31 pg (27-31); MEAN CORPUSCULAR HGB CONC 34 g/dL (33-37); MEAN CORPUSCULAR VOLUME 90.8 fL (80-94); MONOCYTES # (AUTO) 0.2 K/uL (0.8-1.0); MONOCYTES % (AUTO) 1.7 % (1.7-9.3); NEUTROPHILS # (AUTO) 12.4 K/uL (1.8-7.7); NEUTROPHILS % (AUTO) 93.7 % (42.2-75.2); PLATELET COUNT (AUTO) 112 K/uL (140-450); RED BLOOD CELL COUNT(AUTO) 2.81 MIL/uL (4.20-6.10); RED CELL DISTRIBUTION WIDTH 16.8 % (11.6-13.7); WHITE BLOOD COUNT (AUTO) 13.2 K/uL (4.8-10.8)
--- NOTE | 2022-11-30 07:56 | NUR ---
PLACED NGT TO LOW INTERMITTENT SUCTION PER DR. PAYAN. TUBE FEEDING OFF.
[2022-11-30] MEDS: THIAMINE 100 MG TAB PO SCH ×2 (08:53→09:00)
[2022-11-30] MEDS: MULTIVITAMIN 1 TAB PO SCH ×2 (08:53→09:00)
[2022-11-30] MEDS: FOLIC ACID 1 MG TAB PO SCH ×2 (08:54→09:00)
[2022-11-30] MEDS: PANTOPRAZOLE 40 MG INJ VIAL IVP SCH (08:54)
--- NOTE | 2022-11-30 09:07 | NUR ---
RECEIVED ON A [employer] (formerly [employer])APE R860 VENTILATOR PLUGGED INTO RED OUTLET TOLERATING WELL WITHOUT ADVERSE REACTIONS NOTED TO AN ENDOTRACHEAL TUBE #7.5 SECURED AT 26cm TEETH/GUM LINE WITH AN ANCHOR FAST CUFF PRESSURE CHECKED NOTED AMBU BAG AT BEDSIDE SEDATED STABLE NO DISTRESS NOTED ENDOTRACHEAL SUCTION FOR COPIOUS THIN YELLOW SECRETIONS AIRWAY PATENT
--- NOTE | 2022-11-30 09:20 | NUR ---
PLACED ON CPAP TRIAL NOTED TOLERATING WELL WITHOUT APPARENT PULMONARY DISTRESS NOTED GOOD CHEST RISE AND AERATION THROUGHOUT BILATERAL LUNG CACERES AIRWAY PATENT SUN/ MEDIA MARKETING COORDINATOR NOTIFIED
[2022-11-30] MEDS: NOREPINEPHRINE 16 MG in DEXTROSE 5% 250 ML IV PRN (10:55)
--- NOTE | 2022-11-30 12:15 | NUR ---
STABLE NO SOB NOTED EQUAL CHEST RISE AIRWAY PATENT TOLERATING CPAP TRIAL WELL WITHOUT SOB NOTED
--- NOTE | 2022-11-30 12:55 | NUR ---
SEEN AND EXAMINED BY DR. ARCHULETA, NO NEW ORDERS.
[2022-11-30] MEDS: SODIUM BICARBONATE 8.4% 150 MEQ in DEXTROSE 5% 1,000 ML IV SCH (13:40)
--- NOTE | 2022-11-30 13:45 | NUR ---
NO SOB NOTED GOOD CHEST RISE AIRWAY PATENT
--- NOTE | 2022-11-30 16:27 | NUR ---
11/30/22 RD FOLLOW UP COMPLETED.PLEASE REFER TO NUTRITION ASSESSMENT UNDER CARE ACTIVITY FOR ESTIMATED NUTRITIONAL NEEDS. 1. CONTINUE TO HOLD T/F PER MD. WHEN/IF MEDICALLY APPROPRIATE TO RESUME T/F, RECOMMEND NEPRO WITH A GOAL RATE OF 35 ML/HR WITH GERA BID. -START AT 20 ML/HR AND INCREASE BY 10 ML Q4H UNTIL GOAL RATE IS REACHED -FWF 100 ML Q6H OR PER MD WITH GERA BID AND PROPOFOL @ 12 ML/HR, WILL PROVIDE 1989 KCAL AND 73 GRAMS OF PROTEIN, MEETING 88% OF ESTIMATED KCAL NEEDS AND 81% OF PROTEIN NEEDS; ADEQUATE 2. MONITOR GI SYMPTOMS. 3. RD TO FOLLOW-UP 2-3 DAYS, HIGH RISK MARC ESTRADA RD
[2022-11-30] MEDS: CALCIUM GLUC 1 GM/50 mL NS BAG 50 ML IV SCH ×2 (18:33→19:26)
[2022-11-30] MEDS ORDERED: CALCIUM GLUC 1 GM/50 mL NS BAG 50 ML IV SCH (19:00)
[2022-12-01] VITALS (32 sets, daily range): BP systolic 79–123; BP diastolic 46–90
[2022-12-01] MEDS: BLOOD GLUCOSE MONITORING 1 DEV DEV FS SCH ×4 (00:28→18:37)
[2022-12-01] MEDS: NAFCILLIN 2,000 MG in DEXTROSE 5% 100 ML IV SCH ×6 (00:32→20:38)
[2022-12-01] MEDS: INSULIN LISPRO SLIDING SCALE 100 UNITS/ML VIAL SUBQ PRN ×3 (00:34→13:03)
[2022-12-01] MEDS: HYDRAGUARD CREAM TP SCH ×2 (01:00→13:21)
[2022-12-01] MEDS ORDERED: NOREPINEPHRINE 4 MG/4 ML VIAL IV ONE (03:39)
[2022-12-01] MEDS: NOREPINEPHRINE 16 MG in DEXTROSE 5% 250 ML IV PRN ×2 (03:45→19:06)
[2022-12-01] MEDS: fentaNYL citrate - 50mL vial 2.5 MG in NACL 0.9% 200 ML IV PRN (04:15)
[2022-12-01 05:26] LABS: ANION GAP 21.1 (8-16); CARBON DIOXIDE 23.2 mmol/L (21-32); CREATININE 7.2 mg/dL (0.6-1.3); POTASSIUM 3.3 mmol/L (3.5-5.1)
[2022-12-01 05:41] LABS: BASOPHILS # (AUTO) 0.1 K/uL (0.00-0.22); BASOPHILS % (AUTO) 0.4 % (0.0-2.0); EOSINOPHILS # (AUTO) 0.1 K/uL (0-0.4); EOSINOPHILS % (AUTO) 0.4 % (0.0-4.0); HEMATOCRIT 26.5 % (36-52); HEMOGLOBIN 8.8 g/dL (12.0-18.0); LYMPHOCYTES # (AUTO) 0.6 K/uL (2.0-11.5); LYMPHOCYTES % (AUTO) 4.8 % (20.5-51.1); MEAN CORPUSCULAR HEMOGLOBIN 30 pg (27-31); MEAN CORPUSCULAR HGB CONC 33 g/dL (33-37); MEAN CORPUSCULAR VOLUME 90.6 fL (80-94); MONOCYTES # (AUTO) 0.2 K/uL (0.8-1.0); MONOCYTES % (AUTO) 1.4 % (1.7-9.3); NEUTROPHILS # (AUTO) 11.7 K/uL (1.8-7.7); PLATELET COUNT (AUTO) 121 K/uL (140-450); RED BLOOD CELL COUNT(AUTO) 2.92 MIL/uL (4.20-6.10); RED CELL DISTRIBUTION WIDTH 16.9 % (11.6-13.7); WHITE BLOOD COUNT (AUTO) 12.6 K/uL (4.8-10.8)
--- NOTE | 2022-12-01 06:00 | NUR ---
Pt. remains on vent via ETT with O2 Sat=92 to 100% on current settings. Secretions suctioned prn. SR on the scope. Sedated on Propofol and Fentanyl Drips as ordered. Remains on Levophed Drip to keep SBP>90mmHg. NGT connect to LIWS. Afebrile. Will cont. to monitor cardiac, neuro and resp. status.
--- NOTE | 2022-12-01 07:15 | NUR ---
RECEIVED REPORT FROM ECO INDUSTRIAL DEVELOPMENT CONSULTANT DECEMBER RN. PT SEDATED, ETT TO VENT. AC PRVC FI02 35%, VT 450, RATE 18, PEEP 5. SR ON MONITOR. PICC LINE TO FAHAD, INFUSING PROPOFOL @25 MCG/KG/MIN,LEVOPHED @ 20MCG/MIN, FENTANYL @ 50 MCG/H, BICARB @ 60ML/H, NS TKO @ 5ML/H. NGT TO RT NARE,CLAMPED PER GI DOCTOR ORDER DUE TO PT DIARRHEA. PELAYO IN PLACE, RECTAL TUBE IN PLACE. BILAT SOFT RESTRAINTS IN PLACE. SEE WOUND ASSESSMENT. GENERALIZED WEAKNESS, BEDREST. SAFETY PRECAUTION IN PLACE. WILL CONTINUE TO MONITOR.
[2022-12-01] MEDS: ALBUTEROL SULFATE/IPRATROPIU 3 ML SOL IH SCH ×3 (07:28→19:26)
--- NOTE | 2022-12-01 08:25 | NUR ---
DR ADRIANA FORD AT BEDSIDE. UPDATED PT INFORMATION.
[2022-12-01] MEDS: THIAMINE 100 MG TAB PO SCH (08:39)
[2022-12-01] MEDS: MULTIVITAMIN 1 TAB PO SCH (08:39)
[2022-12-01] MEDS: PANTOPRAZOLE 40 MG INJ VIAL IVP SCH (08:39)
[2022-12-01] MEDS: FOLIC ACID 1 MG TAB PO SCH (08:40)
[2022-12-01] MEDS: KCL 20 MEQ IN 100 mL PREMIX 200 ML IV PRN (09:12)
[2022-12-01] MEDS ORDERED: CALCIUM GLUC 1 GM/50 mL NS BAG 50 ML IV SCH (09:15)
--- NOTE | 2022-12-01 09:30 | NUR ---
PT SUCCESSFULLY TOLERATED SPONTANEOUS BREATHING TRIAL FOR 1 HOUR. PT BACK ON PREVIOUS SETTINGS. WILL CONTINUE TO MONITOR.
[2022-12-01] MEDS: PROPOFOL 1000 MG/100 ML PREMIX 100 ML IV PRN (10:35)
[2022-12-01] MEDS: LEVOFLOXACIN 500 MG/D5W PREMIX 100 ML IV SCH (11:56)
--- NOTE | 2022-12-01 12:12 | NUR ---
DR KATHE FORD AT BEDSIDE. UPDATED PT INFORMATION.
--- NOTE | 2022-12-01 13:00 | NUR ---
PT PLACED ON CPAP TRIAL PER DR ARCHULETA. WILL CONTINUE TO MONITOR.
--- NOTE | 2022-12-01 13:05 | NUR ---
WOUND CARE RE-EVAL NOTE: INCONTINENCE ASSOCIATED DERMATITIS REDNESS ON PERINEAL AREA HAS WORSENED TO MULTIPLE SMALL OPEN DENUDED SKIN. WAS HAVING DIARRHEA, CURRENTLY BEING RULED OUT FOR CDIFF, AND RECTAL TUBE WAS PLACED BY NURSING STAFF SINCE PREVIOUS WOUND ASSESSMENT. OTHER WOUNDS (SEE WOUND CARE SHEET) REMAIN THE SAME WITHOUT WORSENING OR NEW WOUNDS. RECOMMENDATIONS: - DISCONTINUE HYDRAGUARD CREAM. START Z-GAURD CREAM ON PERINEAL IAD DAILY AND PRN IF SOILED. - CONTINUE ALL OTHER WOUND CARE REGIMEN AND PREVENTION MEASURES. - DISCUSSED PLAN OF CARE WITH PATIENT, UNABLE TO COMPREHEND. DISCUSSED PLAN OF CARE WITH PRIMARY RN.
--- NOTE | 2022-12-01 13:24 | NUR ---
PT STARTED HD AT BEDSIDE. BP 110/64, HR 105, O2SAT 91%, RR 24
--- NOTE | 2022-12-01 13:26 | NUR ---
SUPERVISOR FITTING ROUNDING, UPDATED NO FAMILY CAN BE REACHED YET.
[2022-12-01] MEDS: Z-GUARD PASTE TP SCH (15:11)
--- NOTE | 2022-12-01 16:11 | NUR ---
HD DONE AT BEDSIDE, 1.5L FLUID OUT. BP 121/69, HR93, O2 SAT 96%, RR 18.
--- NOTE | 2022-12-01 18:37 | NUR ---
DR VALVERDE ROUNDING AT BEDSIDE. UPDATED PT INFORMATION.
--- NOTE | 2022-12-01 19:15 | NUR ---
ENDORSED TO POKER SUPERVISOR DECEMBER RN FOR CONTINUITY OF CARE. ALL QUESTION ANSWERED.
--- NOTE | 2022-12-01 22:02 | NUR ---
2155 placed patient back on ac mode on vent. ac 18 vt 450 rr 18 24% fio2
[2022-12-02] VITALS (31 sets, daily range): BP systolic 86–112; BP diastolic 34–65
[2022-12-02] MEDS: NAFCILLIN 2,000 MG in DEXTROSE 5% 100 ML IV SCH ×6 (00:37→21:00)
[2022-12-02] MEDS: ACETAMINOPHEN 650 MG SUPP RC PRN (00:38)
[2022-12-02] MEDS: BLOOD GLUCOSE MONITORING 1 DEV DEV FS SCH ×3 (00:45→12:58)
[2022-12-02] MEDS: INSULIN LISPRO SLIDING SCALE 100 UNITS/ML VIAL SUBQ PRN ×2 (01:00→06:25)
[2022-12-02] MEDS: Z-GUARD PASTE TP SCH ×2 (01:04→13:05)
--- NOTE | 2022-12-02 01:51 | NUR ---
0107 INCREASED FIO2 TO 35%.SATS DROPPED TO 89%. WILL MONITOR PT. INLINE HHNTX GIVEN AND PT SXNED
[2022-12-02] MEDS: PROPOFOL 1000 MG/100 ML PREMIX 100 ML IV PRN ×2 (04:33→21:33)
--- NOTE | 2022-12-02 05:19 | NUR ---
Pt. remains on vent via ETT with O2 Sat=92 to 96% on current settings of FiO2 30%. Tolerated 8 hours of CPAP well. Secretions suctioned prn. SR to ST on the scope. Sedated on Propofol and Fentanyl Drips as ordered with RASS -2 as oredered. pt. able to communicate needs. Remains on Levophed Drip to keep SBP>90mmHg. NGT connect to LIWS. T=100.9 deg. F; given Tylenol and cooling measures initiated. Nafcillin adm. as ordered. Temp. decreased to 98.5 deg. F after. Will cont. to monitor cardiac, neuro and resp. status.
[2022-12-02 06:00] LABS: BASOPHILS # (AUTO) 0.1 K/uL (0.00-0.22); BASOPHILS % (AUTO) 0.5 % (0.0-2.0); EOSINOPHILS % (AUTO) 0.1 % (0.0-4.0); HEMOGLOBIN 8.9 g/dL (12.0-18.0); LYMPHOCYTES # (AUTO) 0.6 K/uL (2.0-11.5); LYMPHOCYTES % (AUTO) 5.3 % (20.5-51.1); MEAN CORPUSCULAR HEMOGLOBIN 30 pg (27-31); MEAN CORPUSCULAR HGB CONC 34 g/dL (33-37); MONOCYTES # (AUTO) 0.3 K/uL (0.8-1.0); MONOCYTES % (AUTO) 2.4 % (1.7-9.3); NEUTROPHILS # (AUTO) 10.1 K/uL (1.8-7.7); NEUTROPHILS % (AUTO) 91.7 % (42.2-75.2); PLATELET COUNT (AUTO) 122 K/uL (140-450); RED BLOOD CELL COUNT(AUTO) 2.92 MIL/uL (4.20-6.10); RED CELL DISTRIBUTION WIDTH 16.8 % (11.6-13.7)
--- NOTE | 2022-12-02 07:15 | NUR ---
RECEIVED REPORT FROM DOUBLE END TENON OPERATOR DECEMBER RN. PT SEDATED, ETT TO VENT. AC VC FI02 30%, VT 450, RATE 18, PEEP 5. SR ON MONITOR. PICC LINE TO FAHAD, INFUSING PROPOFOL @20 MCG/KG/MIN,LEVOPHED @ 20MCG/MIN, FENTANYL @ 50 MCG/H. NGT TO RT NARE,CLAMPED PER GI DOCTOR ORDER DUE TO PT DIARRHEA. PELAYO IN PLACE, RECTAL TUBE IN PLACE. BILAT SOFT RESTRAINTS IN PLACE. SEE WOUND ASSESSMENT. GENERALIZED WEAKNESS, BEDREST. SAFETY PRECAUTION IN PLACE. WILL CONTINUE TO MONITOR.
--- NOTE | 2022-12-02 07:40 | NUR ---
SEEN BY DR WRIGHT. UPDATED PT INFORMATION.
[2022-12-02] MEDS: ALBUTEROL SULFATE/IPRATROPIU 3 ML SOL IH SCH ×3 (07:50→19:22)
--- NOTE | 2022-12-02 07:50 | NUR ---
SEEN BY DR ARCHULETA. UPDATED PT INFORMATION.
[2022-12-02 08:07] LABS: ALBUMIN 0.9 g/dL (3.4-5.0); ANION GAP 22.8 (8-16); CARBON DIOXIDE 19.3 mmol/L (21-32); POTASSIUM 3.1 mmol/L (3.5-5.1); TOTAL BILIRUBIN 1.8 mg/dL (0.0-1.0)
[2022-12-02 08:16] LABS: CREATININE 6.3 mg/dL (0.6-1.3)
[2022-12-02] MEDS ORDERED: CALCIUM GLUC 1 GM/50 mL NS BAG 50 ML IV SCH ×2 (09:00→09:30)
[2022-12-02] MEDS: PANTOPRAZOLE 40 MG INJ VIAL IVP SCH (09:21)
[2022-12-02] MEDS: MULTIVITAMIN 1 TAB PO SCH (09:22)
[2022-12-02] MEDS: FOLIC ACID 1 MG TAB PO SCH (09:22)
[2022-12-02] MEDS: THIAMINE 100 MG TAB PO SCH (09:22)
[2022-12-02] MEDS: KCL 20 MEQ IN 100 mL PREMIX 200 ML IV PRN (09:28)
--- NOTE | 2022-12-02 09:30 | NUR ---
SEEN BY DR ATWOOD. UPDATED PT INFORMATION.
[2022-12-02] MEDS: NOREPINEPHRINE 16 MG in DEXTROSE 5% 250 ML IV PRN (10:13)
--- NOTE | 2022-12-02 10:20 | NUR ---
HD AT BEDSIDE. DR ATWOOD ORDERED DIALYSIS NURSE TO GIVE K.
--- NOTE | 2022-12-02 11:00 | NUR ---
ENDORSED TO MERLYN MORRISON FOR CONTINUITY OF CARE. ALL QUESTION ANSWERED.
--- NOTE | 2022-12-02 11:12 | NUR ---
RECEIVED SBAR FROM PRINCE) AT THIS TIME
--- NOTE | 2022-12-02 12:00 | NUR ---
DISCHARGE PLANNING S/P INTUBATION 11/26/22.ON PROPOFOL,LEVOPHED AND FENTANYL DRIPS.CONTINUE ABX LEVOFLOXACIN AND NAFCILLIN.NEPRO,PULMO AND I&D TO FOLLOW.DC PLAN CONTINUE CPAP TRIALS PER .CM TO FOLLOW
--- NOTE | 2022-12-02 14:22 | NUR ---
MANAGER COMMODITIES [place] HERE AT BEDSIDE STATED WILL CONTINUE TO SEARCH FOR FAMILY CONTACT
[2022-12-02] MEDS: fentaNYL citrate 1 MG in NACL 0.9% 80 ML IV PRN (15:52)
[2022-12-03] VITALS (31 sets, daily range): BP systolic 87–122; BP diastolic 44–64
[2022-12-03] MEDS: NAFCILLIN 2,000 MG in DEXTROSE 5% 100 ML IV SCH ×7 (00:30→23:24)
[2022-12-03] MEDS: NOREPINEPHRINE 16 MG in DEXTROSE 5% 250 ML IV PRN (02:49)
[2022-12-03] MEDS: Z-GUARD PASTE TP SCH ×2 (03:00→13:05)
--- NOTE | 2022-12-03 07:45 | NUR ---
SBAR REPORT RECEIVED FROM DIEGO MORRISON, ALL CARES ASSUMED. PT RESTING IN BED WITH EYES OPEN, CALM, FOLLOWING COMMANDS, SHAKING/NODDING HEAD TO ANSWER QUESTIONS. PT INTUBATED, SEDATED; ETT TO VENT, AC 18, 500, 30%, 5. PROPOFOL 5 MCG/KG/MIN; FENTANYL 50MCG/HR; LEVOPHED 15 MCG/KG/HR, INFUSING TO FAHAD PICC. R NARE NGT CONNECTED TO LOW INTERMITTENT SUCTION. LUNG SOUNDS CLEAR THROUGHOUT. PELAYO CATHETER DRAINING SCANT TEA COLORED URINE TO GRAVITY. FLEXISEAL DRAINING DARK BROWN LIQUID STOOL TO GRAVITY. BED IN LOW AND LOCKED POSITION. CALL LIGHT WITHIN REACH.
[2022-12-03] MEDS: PANTOPRAZOLE 40 MG INJ VIAL IVP SCH (08:20)
[2022-12-03] MEDS: THIAMINE 100 MG TAB PO SCH (08:21)
[2022-12-03] MEDS: MULTIVITAMIN 1 TAB PO SCH (08:21)
[2022-12-03] MEDS: FOLIC ACID 1 MG TAB PO SCH (08:21)
--- NOTE | 2022-12-03 08:24 | NUR ---
RECEIVED ON A CodyAPE R860 VENTILATOR PLUGGED INTO RED OUTLET TOLERATING WELL WITHOUT ADVERSE REACTIONS NOTED TO AN ENDOTRACHEAL TUBE #7.5 AT 25cm TEETH/GUM LINE WITH AN ANCHOR FAST CUFF PRESSURE CHECKED NOTED AMBU BAG AT BEDSIDE ASLEEP STABLE NO DISTRESS NOTED ENDOTRACHEAL SUCTION FOR SMALL THIN PALE YELLOW SECRETIONS AIRWAY PATENT
[2022-12-03 08:45] LABS: BASOPHILS % (AUTO) 0.5 % (0.0-2.0); EOSINOPHILS % (AUTO) 0.4 % (0.0-4.0); HEMATOCRIT 26.7 % (36-52); HEMOGLOBIN 9.2 g/dL (12.0-18.0); LYMPHOCYTES # (AUTO) 0.6 K/uL (2.0-11.5); LYMPHOCYTES % (AUTO) 6.7 % (20.5-51.1); MEAN CORPUSCULAR HEMOGLOBIN 31 pg (27-31); MEAN CORPUSCULAR HGB CONC 35 g/dL (33-37); MEAN CORPUSCULAR VOLUME 88.4 fL (80-94); MONOCYTES # (AUTO) 0.2 K/uL (0.8-1.0); MONOCYTES % (AUTO) 2.4 % (1.7-9.3); NEUTROPHILS # (AUTO) 7.8 K/uL (1.8-7.7); PLATELET COUNT (AUTO) 160 K/uL (140-450); RED BLOOD CELL COUNT(AUTO) 3.02 MIL/uL (4.20-6.10); RED CELL DISTRIBUTION WIDTH 16.8 % (11.6-13.7); WHITE BLOOD COUNT (AUTO) 8.7 K/uL (4.8-10.8)
[2022-12-03 08:48] LABS: ANION GAP 21.9 (8-16); CARBON DIOXIDE 20.4 mmol/L (21-32); POTASSIUM 3.3 mmol/L (3.5-5.1)
--- NOTE | 2022-12-03 10:53 | NUR ---
STABLE PLACED ON CPAP TRIAL NOTED EQUAL CHEST RISE GOOD AERATION THROUGHOUT BILATERAL LUNG CACERES AIRWAY PATENT PATIENT DID NOT FULLY PARTICIPATE IN WEANING PARAMETERS DR. ARCHULETA AWARE
[2022-12-03] MEDS: LEVOFLOXACIN 500 MG/D5W PREMIX 100 ML IV SCH (11:47)
[2022-12-03] MEDS ORDERED: CALCIUM GLUC 1 GM/50 mL NS BAG 50 ML IV SCH (12:00)
[2022-12-03] MEDS: BLOOD GLUCOSE MONITORING 1 DEV DEV FS SCH ×3 (12:00→23:35)
--- NOTE | 2022-12-03 13:39 | NUR ---
STABLE TOLERATING CPAP TRIAL WELL WITHOUT ADVERSE REACTIONS NOTED ENDOTRACHEAL SUCTION FOR SMALL THI YELLOW SECRETIONS AIRWAY PATENT
[2022-12-03] MEDS: fentaNYL citrate 1 MG in NACL 0.9% 80 ML IV PRN (13:55)
[2022-12-03] MEDS: ALBUTEROL SULFATE/IPRATROPIU 3 ML SOL IH SCH ×3 (14:42→19:18)
--- NOTE | 2022-12-03 15:35 | NUR ---
PLACED BACK ON AC AT THIS TIME FOR HEMODIALYSIS SATURATION 90% ON FIO2 OF28% PEEP 5 cmH2O INCREASED FIO2 TO 40% TO KEEP SATURATION GREATER THAN 90% DURING HEMODIALYSIS ENDOTRACHEAL SUCTION FOR LARGE THICK YELLOW SECRETIONS AIRWAY PATENT
--- NOTE | 2022-12-03 16:39 | NUR ---
12/03/22 RD FOLLOW UP COMPLETED PLEASE REFER TO NUTRITION ASSESSMENT UNDER CARE ACTIVITY FOR ESTIMATED NUTRITIONAL NEEDS. 1. WHEN/IF MEDICALLY APPROPRIATE TO RESUME TF, RECOMMEND NEPRO AT GOAL RATE OF 45 ML/HR WITH GERA BID FOR WOUND SUPPORT TOLERATED -FWF 100 ML Q6H OR PER MD WITH GERA BID AND PROPOFOL @ 2.4 ML/HR, WILL PROVIDE 1080 ML TOATAL VOLUME, 2167 KCAL AND 87 GRAMS OF PROTEIN, MEETING 96% OF ESTIMATED KCAL AND PROTEIN NEEDS; ADEQUATE 2. MONITOR GI SYMPTOMS AND GASTRIC RESIDUALS 3. RD TO FOLLOW-UP 2-3 DAYS, HIGH RISK REVIEWED BY NUHA HUSSEIN RD
--- NOTE | 2022-12-03 20:00 | NUR ---
RECEIVED PT ON BED, SEDATED AND ORALLY INTUBATED, TOLERATING CURRENT VENT SETTING, NO S/S PAIN/DISCOMFORT AT THIS TIME. ASSESSMENT DONE. ERICK IN PLACE, TO LIS WITH SCANT THICK BROWNISH DRAINAGE. REPOSITIONED COMFORTABLY, SUPPORTED WITH PILLOS. KEPT CLEAN AND DRY. SR. AFEBRILE. CONT TO MONITOR.
[2022-12-04] VITALS (31 sets, daily range): BP systolic 89–122; BP diastolic 48–72
[2022-12-04] MEDS: Z-GUARD PASTE TP SCH ×2 (01:00→12:59)
[2022-12-04] MEDS: NAFCILLIN 2,000 MG in DEXTROSE 5% 100 ML IV SCH ×6 (04:25→23:27)
[2022-12-04] MEDS: BLOOD GLUCOSE MONITORING 1 DEV DEV FS SCH ×3 (05:57→18:31)
[2022-12-04 06:17] LABS: BASOPHILS # (AUTO) 0.1 K/uL (0.00-0.22); BASOPHILS % (AUTO) 1.3 % (0.0-2.0); EOSINOPHILS % (AUTO) 0.5 % (0.0-4.0); HEMATOCRIT 25.3 % (36-52); HEMOGLOBIN 8.8 g/dL (12.0-18.0); LYMPHOCYTES # (AUTO) 0.5 K/uL (2.0-11.5); LYMPHOCYTES % (AUTO) 5.3 % (20.5-51.1); MEAN CORPUSCULAR HEMOGLOBIN 31 pg (27-31); MEAN CORPUSCULAR HGB CONC 35 g/dL (33-37); MEAN CORPUSCULAR VOLUME 88.9 fL (80-94); MONOCYTES # (AUTO) 0.2 K/uL (0.8-1.0); NEUTROPHILS # (AUTO) 8.4 K/uL (1.8-7.7); NEUTROPHILS % (AUTO) 90.9 % (42.2-75.2); PLATELET COUNT (AUTO) 157 K/uL (140-450); RED BLOOD CELL COUNT(AUTO) 2.84 MIL/uL (4.20-6.10); RED CELL DISTRIBUTION WIDTH 16.8 % (11.6-13.7); WHITE BLOOD COUNT (AUTO) 9.2 K/uL (4.8-10.8)
[2022-12-04 06:36] LABS: ANION GAP 17.9 (8-16); CARBON DIOXIDE 24.5 mmol/L (21-32); POTASSIUM 3.4 mmol/L (3.5-5.1)
[2022-12-04 06:58] LABS: CREATININE 5.3 mg/dL (0.6-1.3)
--- NOTE | 2022-12-04 07:00 | NUR ---
RECEIVED PT ON AC 18,TV450,+5,30%. VENT WHEELS ARE LOCKED, PLUGGED INTO RED OUTLET, AMBUBAG AT BEDSIDE, ALARMS ARE SET AND AUDIBLE. BREATHING TRIAL SCHEDULED FOR THE MORNING. WILL CONTINUE TO MONITOR.
--- NOTE | 2022-12-04 07:35 | NUR ---
REPORT GIVEN TO ALPA RAUSCH AM, RN. GEN CONDITION CRITICAL.
[2022-12-04] MEDS: ALBUTEROL SULFATE/IPRATROPIU 3 ML SOL IH SCH ×3 (07:57→19:26)
--- NOTE | 2022-12-04 08:30 | NUR ---
SBT 06/18 STARTED ON PATIENT.
--- NOTE | 2022-12-04 09:30 | NUR ---
SBT ENDED 06/18 FOR 60 MINUTES. VOLUMES WERE BETWEEN 550-750. RSBI 30. VITAL CAPACITY 425-632. NIF WAS -12 THEN -9. PT FOLLOWS COMMANDS. WILL CONTINUE TO MONITOR.
--- NOTE | 2022-12-04 09:30 | NUR ---
weaning trials 1 hour completed
[2022-12-04] MEDS: PANTOPRAZOLE 40 MG INJ VIAL IVP SCH (09:52)
[2022-12-04] MEDS: FOLIC ACID 1 MG TAB PO SCH (09:53)
[2022-12-04] MEDS: MULTIVITAMIN 1 TAB PO SCH (09:55)
[2022-12-04] MEDS: THIAMINE 100 MG TAB PO SCH (09:55)
[2022-12-04] MEDS: fentaNYL citrate 1 MG in NACL 0.9% 80 ML IV PRN (13:10)
--- NOTE | 2022-12-04 20:00 | NUR ---
RECEIVED PT ON BED ORALLY INTUBATED, TOLERATING CURRENT VENT SETTING. PT SEDATED, ON PROPOFOL AND FENTANYL DRIPS VIA PICC RIGHT UPPER ARM WITH DRESSING INTACT, CLEAN AND DRY. RASS (-3).ASSESSMENT DONE. NGT FEEDING OF NEPRO GOING ON AT 30 ML/HR, NO RESIDUAL AT THIS TIME. HOB UP, ASPIRATION AND CONTACT PRECAUTION OBSERVED. REPOSITIONED TO SIDE, SUPPORTED WITH PILLOWS. MADE WARM AND COMFORTABLE, RESTRAINTS RELEASED FOR REPOSITIONING AND CIRCULATION CHECK. CALL ANKIT HUFF. SR/SB. CONT TO MONITOR.
[2022-12-05] VITALS (30 sets, daily range): BP systolic 83–140; BP diastolic 51–72
[2022-12-05] MEDS: Z-GUARD PASTE TP SCH ×2 (01:37→12:59)
[2022-12-05] MEDS: NOREPINEPHRINE 16 MG in DEXTROSE 5% 250 ML IV PRN (03:17)
[2022-12-05] MEDS: NAFCILLIN 2,000 MG in DEXTROSE 5% 100 ML IV SCH ×5 (03:38→20:31)
--- NOTE | 2022-12-05 05:56 | NUR ---
2300 PATIENTS SATS DROPPED TO 86%. INCREASED FIO2 TO 40%.
[2022-12-05 06:12] LABS: BASOPHILS # (AUTO) 0.1 K/uL (0.00-0.22); BASOPHILS % (AUTO) 0.9 % (0.0-2.0); EOSINOPHILS % (AUTO) 0.4 % (0.0-4.0); HEMATOCRIT 24.6 % (36-52); HEMOGLOBIN 8.5 g/dL (12.0-18.0); LYMPHOCYTES # (AUTO) 0.9 K/uL (2.0-11.5); LYMPHOCYTES % (AUTO) 7.4 % (20.5-51.1); MEAN CORPUSCULAR HEMOGLOBIN 30 pg (27-31); MEAN CORPUSCULAR HGB CONC 35 g/dL (33-37); MEAN CORPUSCULAR VOLUME 87.3 fL (80-94); MONOCYTES # (AUTO) 0.3 K/uL (0.8-1.0); MONOCYTES % (AUTO) 2.7 % (1.7-9.3); NEUTROPHILS # (AUTO) 10.4 K/uL (1.8-7.7); NEUTROPHILS % (AUTO) 88.6 % (42.2-75.2); PLATELET COUNT (AUTO) 135 K/uL (140-450); RED BLOOD CELL COUNT(AUTO) 2.82 MIL/uL (4.20-6.10); WHITE BLOOD COUNT (AUTO) 11.7 K/uL (4.8-10.8)
[2022-12-05] MEDS: INSULIN LISPRO SLIDING SCALE 100 UNITS/ML VIAL SUBQ PRN (06:14)
[2022-12-05] MEDS: BLOOD GLUCOSE MONITORING 1 DEV DEV FS SCH ×4 (06:16→18:07)
[2022-12-05 06:25] LABS: ANION GAP 18.4 (8-16); CARBON DIOXIDE 24.2 mmol/L (21-32); CREATININE 5.3 mg/dL (0.6-1.3); POTASSIUM 3.6 mmol/L (3.5-5.1)
[2022-12-05] MEDS: ALBUTEROL SULFATE/IPRATROPIU 3 ML SOL IH SCH ×3 (07:15→19:22)
--- NOTE | 2022-12-05 07:30 | NUR ---
SBAR REPORT GIVEN TO INCOMING AM NURSES WALKER AND GEN SALEEM CONDITION CRITICAL.
[2022-12-05] MEDS: PANTOPRAZOLE 40 MG INJ VIAL IVP SCH (09:32)
[2022-12-05] MEDS: THIAMINE 100 MG TAB PO SCH (09:33)
[2022-12-05] MEDS: FOLIC ACID 1 MG TAB PO SCH (09:33)
[2022-12-05] MEDS: MULTIVITAMIN 1 TAB PO SCH (09:33)
--- NOTE | 2022-12-05 10:35 | NUR ---
PT WAS FOUND WITH ET TUBE AT 23 AT THE [facility]. ADVANCED DOWN TO 25 AT [facility] AND HAD CXR ORDERED TO CONFIRM PLACEMENT. PT PLACED ON CPAP TRIAL AT 0804 WITH PS OF8, PEEP 5, FIO2 30, BACKUP RATE OF 18. TOLERATING TRIAL WELL, PARAMETERS ARE RR 26, Vt 511. RSBI 50.9, VC 608, NIF -13. ABG WAS DONE PER dR. Caraballo pH 7.4, pCO2 34, pO2 76.9, HCO3- 20.5. WILL CONTINUE TRIAL LONG PATIENT TOLERATES. WILL CONTINUE TO MONITOR.
[2022-12-05] MEDS: LEVOFLOXACIN 500 MG/D5W PREMIX 100 ML IV SCH (11:07)
[2022-12-05] MEDS: MIDODRINE 5 MG TAB PO SCH ×2 (12:58→20:00)
[2022-12-05] MEDS: CALCIUM GLUC 1 GM/50 mL NS BAG 50 ML IV SCH ×4 (13:00→15:00)
--- NOTE | 2022-12-05 17:09 | NUR ---
12/05/22 RD FOLLOW UP COMPLETED PLEASE REFER TO NUTRITION ASSESSMENT UNDER CARE ACTIVITY FOR ESTIMATED NUTRITIONAL NEEDS. 1. CONTINUE NEPRO AT GOAL RATE OF 35 ML/HR WITH GERA BID FOR WOUND SUPPORT TOLERATED -FWF 100 ML Q6H OR PER MD WITH GERA BID, WILL PROVIDE 840 ML TOATAL VOLUME, 1692 KCAL AND 73 GRAMS OF PROTEIN, MEETING 75% OF ESTIMATED KCAL AND 81% ESTIMATED PROTEIN NEEDS; ADEQUATE 2. MONITOR GI SYMPTOMS AND GASTRIC RESIDUALS 3. RD TO FOLLOW-UP 2-3 DAYS, HIGH RISK REVIEWED BY NUHA HUSSEIN RD
[2022-12-05] MEDS: fentaNYL citrate 1 MG in NACL 0.9% 80 ML IV PRN (18:55)
--- NOTE | 2022-12-05 19:25 | NUR ---
RECEIVED PATIENT ON BED SEDATED WITH FENTANYL AND PROPOFOL DRIP RASS-2. ORALLY INTUBATED AND VENTILATED AT30% FIO2; SO2 93%. CARDIACSCOPE SHOWS ON SINUS RHYTHM HR 96/MIN NO ARRHYTHMIAS SEEN. COMMENCING ON LEVOPHED DRIP AT 12 MCG/MIN VIA PICC LINE TO RIGHT UPPER ARM; PATENT AND INTACT; HEMODIALYSIS ACCESS TO RIGHT INTERNAL JUGULAR; INTACT. ABDOMEN IS SOFT, ACTIVE BOWEL SOUNDS. WITH NGT IN SITU AND RECEIVING CONTINUOUS TUBE FEEDN NEPRO AT 35 ML/HR; TOLERATED. WITH RECTAL TUBE IN PLACE DRAINING TO DARK BROWN WATERY STOOL; WITH PELAYO CATH IN PLACE; ANURIC.
--- NOTE | 2022-12-05 21:00 | NUR ---
TURNED AND REPOSITIONED PATIENT; ORAL CARE DONE WITH VAP KIT.
[2022-12-06] VITALS (26 sets, daily range): BP systolic 86–123; BP diastolic 42–65
[2022-12-06] MEDS: Z-GUARD PASTE TP SCH ×2 (01:00→12:17)
[2022-12-06] MEDS: BLOOD GLUCOSE MONITORING 1 DEV DEV FS SCH ×4 (01:20→17:39)
[2022-12-06] MEDS: INSULIN LISPRO SLIDING SCALE 100 UNITS/ML VIAL SUBQ PRN ×3 (01:25→17:41)
[2022-12-06] MEDS: PROPOFOL 1000 MG/100 ML PREMIX 100 ML IV PRN ×3 (03:58→17:26)
[2022-12-06] MEDS: NAFCILLIN 2,000 MG in DEXTROSE 5% 100 ML IV SCH ×7 (04:01→20:41)
--- NOTE | 2022-12-06 05:00 | NUR ---
MORNING CARE DONE; KEPT CLEAN DRY AND COMFORTABLE.
[2022-12-06] MEDS: NOREPINEPHRINE 16 MG in DEXTROSE 5% 250 ML IV PRN (05:30)
--- NOTE | 2022-12-06 05:57 | NUR ---
PATIENTS SATS DROPPED TO 86%. INCREASED FIO2 TO 60%. SATS 92%
[2022-12-06 06:04] LABS: BASOPHILS # (AUTO) 0.1 K/uL (0.00-0.22); BASOPHILS % (AUTO) 0.5 % (0.0-2.0); EOSINOPHILS # (AUTO) 0.1 K/uL (0-0.4); EOSINOPHILS % (AUTO) 0.5 % (0.0-4.0); HEMATOCRIT 25.4 % (36-52); HEMOGLOBIN 8.5 g/dL (12.0-18.0); LYMPHOCYTES # (AUTO) 0.7 K/uL (2.0-11.5); LYMPHOCYTES % (AUTO) 5.4 % (20.5-51.1); MEAN CORPUSCULAR HEMOGLOBIN 30 pg (27-31); MEAN CORPUSCULAR HGB CONC 33 g/dL (33-37); MEAN CORPUSCULAR VOLUME 88.3 fL (80-94); MONOCYTES # (AUTO) 0.4 K/uL (0.8-1.0); MONOCYTES % (AUTO) 2.7 % (1.7-9.3); NEUTROPHILS % (AUTO) 90.9 % (42.2-75.2); PLATELET COUNT (AUTO) 112 K/uL (140-450); RED BLOOD CELL COUNT(AUTO) 2.87 MIL/uL (4.20-6.10); RED CELL DISTRIBUTION WIDTH 17.2 % (11.6-13.7); WHITE BLOOD COUNT (AUTO) 13.2 K/uL (4.8-10.8)
[2022-12-06 06:44] LABS: ANION GAP 21.5 (8-16); CARBON DIOXIDE 21.3 mmol/L (21-32); POTASSIUM 3.8 mmol/L (3.5-5.1)
[2022-12-06] MEDS: MIDODRINE 5 MG TAB PO SCH ×3 (06:56→18:14)
[2022-12-06] MEDS: ALBUTEROL SULFATE/IPRATROPIU 3 ML SOL IH SCH ×3 (07:00→19:56)
--- NOTE | 2022-12-06 07:00 | NUR ---
RECEIVED PT ACVC TV450,F18,+5,60%. SATURATION WAS 100%. TITRATED DOWN TO 50%. CURRENT SATURATION 95%. VENT WHEELS ARE LOCKED, PLUGGED INTO RED OUTLET, AMBUBAG AT BEDSIDE, ALARMS ARE SET AND AUDIBLE.. BREATH SOUNDS ARE COARSE. SUCTIONED OUT MOD AMOUNT OF THICK PALE SECRETIONS. SBT SCHEDULED FOR THE AM. WILL CONTINUE TO MONITOR.
[2022-12-06 07:11] LABS: CREATININE 6.1 mg/dL (0.6-1.3)
--- NOTE | 2022-12-06 07:15 | NUR ---
RECEIVED REPORT FROM TRAFFIC I MANAGER LOGAN RN. PT SEDATED, ETT TO VENT. AC VC FI02 50%, VT 450, RATE 18, PEEP 5. SR ON MONITOR. PICC LINE TO FAHAD, INFUSING PROPOFOL @30 MCG/KG/MIN,LEVOPHED @ 12MCG/MIN, FENTANYL @ 60 MCG/H, NS TKO @ 3ML/H. NGT TO RT NARE,NEPRO RUNNING @ 35ML/H, FWF 100MLS Q 6H. PELAYO IN PLACE, RECTAL TUBE IN PLACE. BILAT SOFT RESTRAINTS IN PLACE. SEE WOUND ASSESSMENT. GENERALIZED WEAKNESS, BEDREST. SAFETY PRECAUTION IN PLACE. WILL CONTINUE TO MONITOR.
[2022-12-06] MEDS: THIAMINE 100 MG TAB PO SCH (08:15)
[2022-12-06] MEDS: PANTOPRAZOLE 40 MG INJ VIAL IVP SCH (08:15)
[2022-12-06] MEDS: MULTIVITAMIN 1 TAB PO SCH (08:15)
[2022-12-06] MEDS: FOLIC ACID 1 MG TAB PO SCH (08:16)
--- NOTE | 2022-12-06 09:20 | NUR ---
SEDATION VACATION AND SBT STARTED ON PT. SETTING 08/18. VOLUMES ARE 550-850. RESPIRATORY RATE 18-25. SATURATION 95%. WILL CONTINUE TO MONITOR.
--- NOTE | 2022-12-06 10:08 | NUR ---
DR BOUDREAUX ROUNDING AT BEDSIDE. UPDATED PT INFORMATION.
--- NOTE | 2022-12-06 10:42 | NUR ---
SBT ENDED PT LASTED FOR 60 MINUTES BEFORE IT TRIGGERED OVER TO FULL VENT SUPPORT. UNABLE TO ACQUIRE A NIF OR VITAL CAPACITY. WILL CONTINUE TO MONITOR.
[2022-12-06] MEDS ORDERED: ALTEPLASE 100 MG VIAL IV ONE (11:20)
[2022-12-06] MEDS ORDERED: ALTEPLASE 2 MG VIAL MC SCH (12:00)
--- NOTE | 2022-12-06 12:03 | NUR ---
CATHFLO ACTIVASE 4MG GIVEN BY HD NURSE AT BEDSIDE.
--- NOTE | 2022-12-06 13:17 | NUR ---
DR US ROUNDLAWRENCE AT BEDSIDE. UPDATED PT INFORMATION.
[2022-12-06] MEDS ORDERED: CALCIUM CHLORIDE 10% 1,000 MG in NACL 0.9% 100 ML IV SCH ×2 (13:30→15:00)
[2022-12-06] MEDS: fentaNYL citrate 1 MG in NACL 0.9% 80 ML IV PRN (13:33)
[2022-12-06] MEDS: CALCIUM ACETATE 667 MG TAB PO SCH (16:12)
--- NOTE | 2022-12-06 16:36 | NUR ---
PATIENTS SATURATION WAS DROPPING INTO THE 80S. TITRATED HIS FIO2 TO 60%. CURRENT SATURATION 95%. WILL CONTINUE TO MONITOR.
--- NOTE | 2022-12-06 16:36 | NUR ---
DR ANGELIC FORD AT BEDSIDE. UPDATED PT INFORMATION.
--- NOTE | 2022-12-06 16:54 | NUR ---
DR VALVERDE ROUNDING AT BEDSIDE. UPDATED PT INFORMATION.
--- NOTE | 2022-12-06 19:18 | NUR ---
ENDORSED TO FITTING ROOM SUPERVISOR PEPPI RN FOR CONTINUITY OF CARE. ALL QUESTIONS ANSWERED.
--- NOTE | 2022-12-06 20:00 | NUR ---
RECEIVED PT ON BED - SEDATED, ORALLY INTUBATED, TOLERATING CURRENT VENT SETTING, TOLERATING GT FEEDING. aSSESSMENT DONE. REPOSITIONED TO SIDE, SUPPORTED WITH PILLOWS. RECTAL TUBE AND PELAYO CATH IN PLACE. HOB UP. CONTACT ISOLATION PRECAUTION OBSERVED. SR. AFEBRILE. CONT TO MONITOR.
[2022-12-07] VITALS (26 sets, daily range): BP systolic 74–107; BP diastolic 46–65
[2022-12-07] MEDS: NAFCILLIN 2,000 MG in DEXTROSE 5% 100 ML IV SCH ×7 (00:23→23:49)
[2022-12-07] MEDS: INSULIN LISPRO SLIDING SCALE 100 UNITS/ML VIAL SUBQ PRN ×2 (00:27→12:08)
[2022-12-07] MEDS: BLOOD GLUCOSE MONITORING 1 DEV DEV FS SCH ×4 (00:32→18:14)
[2022-12-07] MEDS: Z-GUARD PASTE TP SCH ×2 (01:00→13:00)
[2022-12-07 06:19] LABS: BASOPHILS % (AUTO) 0.2 % (0.0-2.0); EOSINOPHILS # (AUTO) 0.1 K/uL (0-0.4); EOSINOPHILS % (AUTO) 0.9 % (0.0-4.0); HEMATOCRIT 25.9 % (36-52); HEMOGLOBIN 8.9 g/dL (12.0-18.0); LYMPHOCYTES # (AUTO) 0.4 K/uL (2.0-11.5); MEAN CORPUSCULAR HEMOGLOBIN 31 pg (27-31); MEAN CORPUSCULAR HGB CONC 35 g/dL (33-37); MEAN CORPUSCULAR VOLUME 88.1 fL (80-94); MONOCYTES # (AUTO) 0.2 K/uL (0.8-1.0); NEUTROPHILS # (AUTO) 13.1 K/uL (1.8-7.7); PLATELET COUNT (AUTO) 82 K/uL (140-450); RED BLOOD CELL COUNT(AUTO) 2.94 MIL/uL (4.20-6.10); RED CELL DISTRIBUTION WIDTH 17.3 % (11.6-13.7); WHITE BLOOD COUNT (AUTO) 13.9 K/uL (4.8-10.8)
[2022-12-07] MEDS: MIDODRINE 5 MG TAB PO SCH ×3 (06:55→19:20)
[2022-12-07 07:04] LABS: LYMPHOCYTES % (AUTO) 3.1 % (20.5-51.1); MONOCYTES % (AUTO) 1.4 % (1.7-9.3); NEUTROPHILS % (AUTO) 94.4 % (42.2-75.2)
--- NOTE | 2022-12-07 07:30 | NUR ---
SBAR REPORT GIVEN TO INCOMING AM RN WALKER. GEN CONDITION CRITICAL.
[2022-12-07 07:58] LABS: POTASSIUM 3.8 mmol/L (3.5-5.1)
[2022-12-07 07:59] LABS: ANION GAP 20.2 (8-16); CARBON DIOXIDE 21.6 mmol/L (21-32)
[2022-12-07] MEDS: ALBUTEROL SULFATE/IPRATROPIU 3 ML SOL IH SCH (08:08)
[2022-12-07 08:14] LABS: CREATININE 5.9 mg/dL (0.6-1.3)
[2022-12-07] MEDS: THIAMINE 100 MG TAB PO SCH (08:26)
[2022-12-07] MEDS: FOLIC ACID 1 MG TAB PO SCH (08:27)
[2022-12-07] MEDS: PANTOPRAZOLE 40 MG INJ VIAL IVP SCH (08:27)
[2022-12-07] MEDS: CALCIUM ACETATE 667 MG TAB PO SCH ×2 (08:27→18:13)
[2022-12-07] MEDS: MULTIVITAMIN 1 TAB PO SCH (08:27)
[2022-12-07] MEDS: LEVOFLOXACIN 500 MG/D5W PREMIX 100 ML IV SCH (11:06)
--- NOTE | 2022-12-07 11:25 | NUR ---
CHANGED PTS ANCHOR FAST. NO DISTRESS NOTED.
[2022-12-07] MEDS: PROPOFOL 1000 MG/100 ML PREMIX 100 ML IV PRN ×3 (12:07→21:57)
[2022-12-07] MEDS ORDERED: CALCIUM CHLORIDE 10% 1,000 MG in NACL 0.9% 100 ML IV SCH ×2 (12:30→14:00)
[2022-12-07] MEDS: ACETAMINOPHEN 650 MG SUPP RC PRN (13:34)
[2022-12-07] MEDS ORDERED: ALBUMIN HUMAN 5 % 250 ML IV ONE ×2 (13:35→17:34)
[2022-12-07] MEDS ORDERED: ACETAMINOPHEN 325 MG TAB PO PRN (13:35)
[2022-12-07] MEDS: VASOPRESSIN 20 UNITS in NACL 0.9% 250 ML IV SCH (17:58)
--- NOTE | 2022-12-07 19:20 | NUR ---
REPORT RECEIVED FROM WALKER MORRISON. PATIENT SEDATED AND VENTILATED. PATIENT ON PROPOFOL 35 MCG/KG/MIN, FENTANYL 60 MCG/HR, LEVOPHED 16 MCG/MIN, VASOPRESSIN 0.03 IU/MIN. VENTILATOR ON AC VC FIO2 60% RATE 18 TV 450 PEEP 5. TEMPERATURE 98.0F, HR 93, RR 20, SPO2 96%, BP 86/49. EDEMA NOTED ON BILATERAL UPPER AND LOWER EXTREMITIES. PICC LINE IV ON RIGHT UPPER ARM. MARGY CATHETER ON RIGHT NECK. PATIENT HAS AN NG TUBE IN THE RIGHT NARE. PATIENT ALSO HAS A RECTAL TUBE IN PLACE.
[2022-12-07] MEDS: fentaNYL citrate 1 MG in NACL 0.9% 80 ML IV PRN (23:55)
[2022-12-08] VITALS (30 sets, daily range): BP systolic 84–131; BP diastolic 48–67
[2022-12-08] MEDS: BLOOD GLUCOSE MONITORING 1 DEV DEV FS SCH ×4 (00:43→18:12)
[2022-12-08] MEDS: Z-GUARD PASTE TP SCH ×2 (01:00→13:00)
[2022-12-08] MEDS: PROPOFOL 1000 MG/100 ML PREMIX 100 ML IV PRN ×2 (03:33→15:44)
[2022-12-08] MEDS: NAFCILLIN 2,000 MG in DEXTROSE 5% 100 ML IV SCH ×5 (04:11→19:43)
[2022-12-08] MEDS ORDERED: VASOPRESSIN 20 UNITS/ML VIAL ONE (04:16)
[2022-12-08 04:39] LABS: BASOPHILS % (AUTO) 0.1 % (0.0-2.0); EOSINOPHILS # (AUTO) 0.1 K/uL (0-0.4); EOSINOPHILS % (AUTO) 0.4 % (0.0-4.0); HEMATOCRIT 26.4 % (36-52); HEMOGLOBIN 9.2 g/dL (12.0-18.0); LYMPHOCYTES # (AUTO) 0.4 K/uL (2.0-11.5); MEAN CORPUSCULAR HEMOGLOBIN 31 pg (27-31); MEAN CORPUSCULAR HGB CONC 35 g/dL (33-37); MEAN CORPUSCULAR VOLUME 88.5 fL (80-94); MONOCYTES # (AUTO) 0.2 K/uL (0.8-1.0); MONOCYTES % (AUTO) 1.3 % (1.7-9.3); NEUTROPHILS # (AUTO) 17.1 K/uL (1.8-7.7); NEUTROPHILS % (AUTO) 96.2 % (42.2-75.2); PLATELET COUNT (AUTO) 57 K/uL (140-450); RED BLOOD CELL COUNT(AUTO) 2.98 MIL/uL (4.20-6.10); RED CELL DISTRIBUTION WIDTH 17.5 % (11.6-13.7); WHITE BLOOD COUNT (AUTO) 17.8 K/uL (4.8-10.8)
[2022-12-08 05:15] LABS: ANION GAP 19.6 (8-16); CARBON DIOXIDE 20.9 mmol/L (21-32); CREATININE 6.3 mg/dL (0.6-1.3); POTASSIUM 4.5 mmol/L (3.5-5.1)
[2022-12-08] MEDS: INSULIN LISPRO SLIDING SCALE 100 UNITS/ML VIAL SUBQ PRN (05:33)
[2022-12-08] MEDS: ALBUTEROL SULFATE/IPRATROPIU 3 ML SOL IH SCH ×3 (07:02→19:36)
--- NOTE | 2022-12-08 07:50 | NUR ---
SBAR REPORT RECEIVED FROM RAFA MORRISON, ALL CARES ASSUMED. PT RESTING IN BED WITH EYES CLOSED. PT INTUBATED AND SEDATED. ETT TO VENT, AC/VC 18, 500, 28%, 5. PROPOFOL 40MCG/KG/MIN, FENTANYL 60 MCG/HR, LEVOPHED 20 MCG/MIN, NS 5ML/HR INFUSING TO FAHAD PICC. NEPRO 35ML/HR INFUSING TO NGT. PELAYO CATHETER DRAINING TO GRAVITY. RECTAL TUBE IN PLACE. BED IN LOW AND LOCKED POSITION.
[2022-12-08] MEDS: MIDODRINE 5 MG TAB PO SCH ×3 (07:56→18:12)
[2022-12-08] MEDS: FOLIC ACID 1 MG TAB PO SCH (09:00)
[2022-12-08] MEDS: THIAMINE 100 MG TAB PO SCH (09:00)
[2022-12-08] MEDS: PANTOPRAZOLE 40 MG INJ VIAL IVP SCH (09:00)
[2022-12-08] MEDS: MULTIVITAMIN 1 TAB PO SCH (09:00)
[2022-12-08] MEDS ORDERED: FLUMAZENIL 0.5 MG/5 ML VIAL IVP ONE (09:32)
[2022-12-08] MEDS ORDERED: NALOXONE 0.4 MG/ML VIAL ONE (09:32)
[2022-12-08] MEDS ORDERED: fentaNYL citrate 0.05 MG/ML VIAL ONE (09:33)
[2022-12-08] MEDS ORDERED: MIDAZOLAM 2 MG/2 ML VIAL ONE (09:33)
--- NOTE | 2022-12-08 10:02 | NUR ---
WOUND CARE RE-EVALUATION NOTES: WOUND ASSESSMENT DONE, +2 EDEMA WITH ECCHYMOSIS TO UPPER EXTREMITIES, FLEXI SEAL AND F/C PATENT. POC DISCUSSED WITH PRIMARY RN WALKER AND SALEEM FARLEY RN. INTEGUMENTARY: -SCALP DRY SCAB 1.5X3CM, NOSE DRY SCABS 0.5X0.5CM -RIGHT HALLUX TIP OF TOE 0.5X1CM DTI, LATERAL AND MEDIAL FOOT MULTIPLE DTI WITH LARGEST 5X1CM TO LATERAL FOOT. RIGHT FIRST METATARSAL HEAD BLACK STABLE NECROTIC TISSUE 3X4CM. - RIGHT UPPER PLANTAR FOOT 5 X 7 CM BLACK ESCHAR TISSUE WOUND. ABHI-WOUND SKIN DRY, PEELING. -LEFT HALLUX TIP OF TOE 0.5X0.5CM DTI, LATERAL AND MEDIAL FOOT MULTIPLE DTI WITH LARGEST 3X1CM TO LATERAL FOOT - LEFT MEDIAL DORSAL TO PLANTAR FOOT 4 X 4 CM UN-STAGEABLE WOUND. WOUND BED BLACK, ABHI-WOUND SKIN NON-BLANCHABLE, INTACT. - RIGHT KNEE DRY SCAB 7 X 3 CM. ABHI-WOUND SKIN INTACT. - RLE MULTIPLE SCABS WITH LARGEST 3 X 2 CM. ABHI-WOUND SKIN INTACT. - LEFT KNEE SCAB 5.5 X 3.5 CM. ABHI-WOUND SKIN INTACT. - RIGHT BUTTOCK NON-BLANCHABLE REDNESS 5 X 3CM. ABHI-WOUND SKIN DENUDED. - PERINEAL, BILATERAL GLUTEAL FOLDS AND SCROTAL MOISTURE ASSOCIATED DERMATITIS, DENUDED SKIN, PERIWOUND RED, INTACT. - LEFT HIP NON-BLANCHABLE REDNESS 10 X 7 X 0 CM. ABHI-WOUND SKIN INTACT. RECOMMENDATIONS: - RIGHT METATARSAL HEAD, RIGHT AND LEFT PLANTARS DRY ESCHAR TISSUE AND BILATERAL FEET MULTIPLE DTI: CLEANSE WITH NS, PAT DRY, COVER WITH SOAKED BETADINE GAUZE, AND WRAP WITH KERLIX ROLL, SECURED WITH TAPE DAILY AND PRN IF SOILED. - BILATERAL KNEES AND RLE SCABS: APPLY BETADINE SWABS BID AND LEAVE HYGIENE TEACHER - RIGHT BUTTOCK CLEANSE WITH NS, PAT DRY, APPLY Z GUARD AND COVER WITH ISLAND DRESSING DAILY AND PRN IF SOILED. - PERINEAL AND SCROTAL MOISTURE ASSOCIATED DERMATITIS: CLEANSE WITH SOAPY WATER OR NS, PAT DRY, APPLY Z GUARD DAILY AND PRN IF SOILED. - LEFT HIP CLEANSE WITH NS, PAT DRY, APPLY FOAM DRESSING CHANGE Q3 DAYS AND PRN IF SOILED. -PRESSURE REDISTRIBUTION SURFACE THERAPY CATHY ISOFLEX DANIELITO MATTRESS -POSITIONING: TURN AND REPOSITION PATIENT Q 2H OR SOONER USE PILLOWS TO KEEP BONY PROMINENCES FROM DIRECT CONTACT WITH SURFACES USE REPOSITIONING WEDGES TO PROVIDE 30-DEGREE ANGLE FOR SIDE LYING POSITIONS OFFLOADING OR FOAM DRESSING TO ALL TUBING TO PREVENT MEDICAL DEVICES RELATED PRESSURE INJURY -RE-EVALUATING AND MANAGING INCONTINENCE MONITOR SKIN CONDITION DURING POSITION CHANGE DO NOT MASSAGE REDNESS, BONY PROMINENCES FREQUENT ABHI-CARE AND PROVIDE BARRIER CREAMS PRN IF SOILING MOISTURE CONTROL BY OFFER BED ALEXIS/URINAL /ABSORBENT PAD TO WICK AND HOLD MOISTURE KEEP SKIN DRY AND PROTECT FROM FRICTION -MANAGE FRICTION/SHEAR/MOBILITY KEEP HOB AT THE LOWEST LEVEL OF ELEVATION NO MORE THAN 30 DEGREE UNLESS OTHERWISE CONTRAINDICATED USE LIFT SHEET OR TRANSFER DEVICE TO MOVE PATIENT AND PREVENT LATERAL SHEER. PROTECT HEELS, ELBOWS BONY PROMINENCES WITH SKIN BERRIES OR FOAM DRESSING IF EXPOSED TO FRICTION OFFLOAD BILATERAL HEELS BY PLACING PILLOWS UNDER CALVES AT ALL TIMES, UNLESS OTHERWISE CONTRAINDICATED -NUTRITION: PLEASE FOLLOW RD RECOMMENDATIONS AND OFFER NUTRITION SUPPLEMENTS IF ORDERED.
[2022-12-08] MEDS: CALCIUM ACETATE 667 MG TAB PO SCH ×2 (10:40→16:31)
[2022-12-08] MEDS ORDERED: LORazepam 2 MG/ML VIAL IM/IVP PRN (12:45)
[2022-12-08] MEDS ORDERED: LORazepam 2 MG/ML VIAL IVP PRN (12:45)
[2022-12-08] MEDS ORDERED: LORazepam 2 MG/ML VIAL ONE (12:50)
--- NOTE | 2022-12-08 13:15 | NUR ---
AT APPROXIMATELY 1300 THIS RN WITNESSED SEIZURE ACTIVITY FOR LESS THAN 1 MINUTE, DR US ROUNDING AT THAT TIME AND WITNESSED SEIZURE WELL. 1MG ATIVAN IVP GIVEN ONE TIME ORDERED BY DR US. STAT HEAD CT ORDERED.
--- NOTE | 2022-12-08 13:35 | NUR ---
TOOK PT TO CT WITH SALEEM BOB RN. PT ON TRANSPORT MONITOR, STABLE THROUGHOUT TRANSPORT, VSS. BACK IN ICU 7.
[2022-12-08] MEDS ORDERED: ALBUMIN HUMAN 5 % 250 ML IV SCH (14:00)
[2022-12-08] MEDS ORDERED: ALBUMIN HUMAN 25% 100 ML IV SCH (15:15)
--- NOTE | 2022-12-08 15:29 | NUR ---
12/08/22 RD FOLLOW UP COMPLETED PLEASE REFER TO NUTRITION ASSESSMENT UNDER CARE ACTIVITY FOR ESTIMATED NUTRITIONAL NEEDS. 1. CONTINUE NEPRO AT GOAL RATE OF 35 ML/HR WITH GERA BID FOR WOUND SUPPORT TOLERATED -FWF 100 ML Q6H OR PER MD WITH GERA BID AND PROPOFOL AT CURRENT RATE, WILL PROVIDE 840 ML TOTAL VOLUME, 2126 KCAL AND 73 GRAMS OF PROTEIN, MEETING 95% OF ESTIMATED KCAL AND 81% ESTIMATED PROTEIN NEEDS; ADEQUATE 2. MONITOR GI SYMPTOMS AND GASTRIC RESIDUALS 3. RD TO FOLLOW-UP 2-3 DAYS, HIGH RISK REVIEWED BY NUHA HUSSEIN RD
[2022-12-08] MEDS: fentaNYL citrate 1 MG in NACL 0.9% 80 ML IV PRN (16:27)
[2022-12-08] MEDS: VASOPRESSIN 20 UNITS in NACL 0.9% 250 ML IV SCH (16:30)
[2022-12-08] MEDS ORDERED: VANCOMYCIN PER PHARMACY MC PRN (20:40)
[2022-12-08] MEDS ORDERED: VANCOMYCIN 1GM/DEXT 5% PREMIX 200 ML IV SCH (21:00)
[2022-12-09] VITALS (31 sets, daily range): BP systolic 58–148; BP diastolic 25–71
[2022-12-09] MEDS: PROPOFOL 1000 MG/100 ML PREMIX 100 ML IV PRN (00:14)
[2022-12-09] MEDS: BLOOD GLUCOSE MONITORING 1 DEV DEV FS SCH ×4 (00:21→18:15)
[2022-12-09] MEDS: NAFCILLIN 2,000 MG in DEXTROSE 5% 100 ML IV SCH ×6 (00:22→20:00)
[2022-12-09] MEDS: Z-GUARD PASTE TP SCH ×2 (00:22→13:00)
[2022-12-09] MEDS: ALBUTEROL SULFATE/IPRATROPIU 3 ML SOL IH SCH ×3 (01:25→20:17)
[2022-12-09] MEDS ORDERED: VASOPRESSIN 20 UNITS/ML VIAL ONE (03:48)
--- NOTE | 2022-12-09 05:41 | NUR ---
PT IS UNSTABLE, MAXED OUT ON LEVOPHED AND VASOPRESSIN. ATTEMPTED TO CALL DR URIBE AND DR CRAIG FOR FURTHER ORDERS VIA TEXT BUT NO REPLY YET. UNABLE TO TURN PT AT THE MOMENT WITH CONCERN OF INSTABILITY
[2022-12-09] MEDS: MIDODRINE 5 MG TAB PO SCH ×3 (07:18→18:16)
[2022-12-09] MEDS ORDERED: NOREPINEPHRINE 4 MG/4 ML VIAL IV ONE (07:21)
--- NOTE | 2022-12-09 07:22 | NUR ---
SBAR REPORT RECEIVED FROM KENNETH RN, ALL CARES ASSUMED. PT INTUBATED, ETT TO VENT, AC/VC 18, 450, 100%, 5. PT BREATHING IS SHALLOW AND LABORED. PT RESPONSIVE TO LIGHT TOUCH. LEVOPHED 30MCG/MIN, VASOPRESSIN 0.03 UNITS/MIN, NS 3ML/HR INFUSING TO FAHAD PICC. NEPRO 35ML/HR INFUSING TO NGT. PELAYO CATHETER DRAINING TO GRAVITY. BED IN LOW AND LOCKED POSITION.
--- NOTE | 2022-12-09 07:40 | NUR ---
CALL TO DR US, RECEIVED ORDER FOR NEOSYNEPHRINE DRIP. LEVOPHED AND VASOPRESSIN MAXED.
[2022-12-09] MEDS ORDERED: PHENYLEPHRINE 10 MG in NACL 0.9% 250 ML IV PRN (07:45)
[2022-12-09] MEDS ORDERED: PHENYLEPHRINE 10 MG/ML VIAL ONE ×2 (07:47→09:48)
[2022-12-09] MEDS: PANTOPRAZOLE 40 MG INJ VIAL IVP SCH (08:10)
[2022-12-09] MEDS: THIAMINE 100 MG TAB PO SCH (08:11)
[2022-12-09] MEDS: MULTIVITAMIN 1 TAB PO SCH (08:11)
[2022-12-09] MEDS: CALCIUM ACETATE 667 MG TAB PO SCH ×2 (08:11→16:54)
[2022-12-09] MEDS: FOLIC ACID 1 MG TAB PO SCH (08:11)
[2022-12-09] MEDS ORDERED: EPINEPHrine 1 mg/mL 1 MG in DEXTROSE 5% 250 ML IV PRN (08:50)
--- NOTE | 2022-12-09 09:10 | NUR ---
MANJEET RYAN COMMUNICATED RESULTS OF ABG TO DR US, VENT SETTING ORDERS TO CHANGE TIDAL VOLUME TO 500, RR TO 30. ALSO RECEIVED ORDER FOR 2 AMP BICARB GIVEN IVP ONCE. REPEAT ABG IN 4 HOURS.
[2022-12-09 09:12] LABS: MEAN CORPUSCULAR HGB CONC 34 g/dL (33-37); RED CELL DISTRIBUTION WIDTH 17.9 % (11.6-13.7)
[2022-12-09 09:16] LABS: ANION GAP 23.3 (8-16); CARBON DIOXIDE 20.1 mmol/L (21-32); POTASSIUM 5.4 mmol/L (3.5-5.1)
[2022-12-09 09:22] LABS: MAGNESIUM 1.9 mg/dL (1.8-2.4)
[2022-12-09 09:29] LABS: CREATININE 5.8 mg/dL (0.6-1.3)
[2022-12-09 09:30] LABS: PHOSPHORUS 9.7 mg/dL (2.5-4.9)
[2022-12-09] MEDS ORDERED: SODIUM BICARBONATE 8.4% PFS 50 MEQ/50 ML SYR IVP SCH ×2 (09:30→14:30)
[2022-12-09 09:38] LABS: HEMATOCRIT 29.9 % (36-52); MEAN CORPUSCULAR HEMOGLOBIN 30 pg (27-31); MEAN CORPUSCULAR VOLUME 89.1 fL (80-94); PLATELET COUNT (AUTO) 36 K/uL (140-450); RED BLOOD CELL COUNT(AUTO) 3.36 MIL/uL (4.20-6.10); WHITE BLOOD COUNT (AUTO) 13.1 K/uL (4.8-10.8)
[2022-12-09] MEDS ORDERED: VANCOMYCIN 750 MG in DEXTROSE 5% 250 ML IV SCH (10:00)
[2022-12-09] MEDS ORDERED: CALCIUM CHLORIDE 10% 1,000 MG in NACL 0.9% 100 ML IV SCH (10:30)
--- NOTE | 2022-12-09 10:45 | NUR ---
DR ABEBA FORD AT BEDSIDE, RECEIVED ORDERS FOR DEXAMETHASONE 4MG Q6HR, D5W WITH SODIUM BICARB 75 ML/HR, HOLD TUBE FEEDING.
--- NOTE | 2022-12-09 10:45 | NUR ---
SBP IN 80'S, ORDER RECEIVED FROM DR US FOR EPINEPHRINE DRIP. Addendum: 12/09/22 at 1121 by [place] [id number] TAMIKO RN ALSO RECEIVED ORDER FOR STAT ABG.
[2022-12-09] MEDS: LEVOFLOXACIN 500 MG/D5W PREMIX 100 ML IV SCH (11:00)
[2022-12-09 11:23] LABS: EOSINOPHILS % (MANUAL) 3 % (0-4); LYMPHOCYTES % (MANUAL) 6 % (20-46); MONOCYTES % (MANUAL) 4 % (5-12)
[2022-12-09] MEDS ORDERED: SODIUM BICARBONATE 8.4% 150 MEQ in DEXTROSE 5% 1,000 ML IV SCH (11:30)
--- NOTE | 2022-12-09 11:52 | NUR ---
DC PLANNING PATIENT REMAINS INTUBATED WITH WORSENING ABG,ON LEVOPHED,VASOPRESSIN, PROPOFOL AND FENTANYL DRIPS.HAD SEIZURE 12/08.CT SCAN DONE AND SHOWS NO EVIDENCE OF INTRACRANIAL HEMORRHAGE.CONTINUE ABX (NAFCILLIN,LEVOFLOXACIN AND VANCOMYCIN.CM TO FOLLOW.
[2022-12-09] MEDS: DEXAMETHASONE 4 MG/ML VIAL IM SCH ×2 (12:36→18:16)
--- NOTE | 2022-12-09 12:37 | NUR ---
BP CONTINUES TO DECLINE, VASOPRESSIN 0.03 UNITS/MIN, LEVOPHED 30MCG/MIN, NEOSYNEPHRINE 150MCG/MIN, EPINEPHRINE 10 MCG/MIN; ALL PRESSORS MAXED. PT NOT RESPONSIVE, NO GAG REFLEX, AGONAL RESPIRATIONS. PT REMAINS ANURIC. ALL FOUR EXTREMITIES 4+ PITTING EDEMA, SKIN IS MOTTLED.
[2022-12-09] MEDS ORDERED: EPINEPHrine 1 MG/ML AMP ONE (12:58)
[2022-12-09] MEDS: PHENYLEPHRINE 40 MG in NACL 0.9% 250 ML IV PRN ×3 (13:21→19:29)
[2022-12-09] MEDS: EPINEPHrine 1 mg/mL 5 MG in DEXTROSE 5% 250 ML IV PRN (13:21)
[2022-12-09] MEDS: VASOPRESSIN 20 UNITS in NACL 0.9% 250 ML IV SCH (15:17)
--- NOTE | 2022-12-09 19:03 | NUR ---
SBAR REPORT GIVEN TO CHRISTIANO RN, ALL CARES ENDORSED.
[2022-12-09] MEDS: NOREPINEPHRINE 16 MG in DEXTROSE 5% 250 ML IV PRN (19:28)
[2022-12-09] MEDS ORDERED: DEXT 5% / NACL 0.45% 1,000 ML IV SCH (23:05)
[2022-12-09] MEDS ORDERED: INSULIN REGULAR, HUMAN 100 UNIT in NACL 0.9% 100 ML IV SCH ×2 (23:05)
[2022-12-09] MEDS ORDERED: BLOOD GLUCOSE MONITORING 1 DEV DEV FS SCH (23:05)
[2022-12-09] MEDS ORDERED: DEXTROSE 50% 50 ML SYR IVP PRN ×2 (23:05→23:30)
[2022-12-09] MEDS ORDERED: NACL 0.9% 1,000 ML IV SCH (23:05)
[2022-12-09] MEDS ORDERED: INSULIN LISPRO SLIDING SCALE 100 UNITS/ML VIAL SUBQ PRN (23:30)
--- NOTE | 2022-12-09 23:30 | NUR ---
Pt,s HR dropped to Low 40's . Dr Dias paged and made aware of pt,s current condition.All drips maxed out. Order to give 1mg of Atropine IVP received. 22.44 1 mg of atropine administered.GR now sustaining at 48BPM. Dr Dias paged and given current HR. Order to administer 1mg of Atropine again received. 23.09 Atropine 1mg administered. HR sustaining in 50,s now.
[2022-12-10] VITALS: BP 72/47
[2022-12-10] MEDS ORDERED: EPINEPHrine 1 MG/ML AMP ONE
[2022-12-10] MEDS: NAFCILLIN 2,000 MG in DEXTROSE 5% 100 ML IV SCH (00:15)
[2022-12-10] MEDS: DEXAMETHASONE 4 MG/ML VIAL IM SCH (00:15)
[2022-12-10] MEDS: VASOPRESSIN 20 UNITS in NACL 0.9% 250 ML IV SCH ×2 (00:21→03:17)
[2022-12-10] MEDS: EPINEPHrine 1 mg/mL 5 MG in DEXTROSE 5% 250 ML IV PRN (00:25)
[2022-12-10 01:00] VITALS: BP 57/30
[2022-12-10] MEDS: Z-GUARD PASTE TP SCH (01:00)
--- NOTE | 2022-12-10 01:42 | NUR ---
Pt presented flat line on the monitor with very faint pulse using doppler. Code blue called. No compression was required at this time. Code team arrived and orderes was given By ER MD. Pt stabilized after a few mins .HR reversed to 50,s after episode. Pt remaines closely monitored.
[2022-12-10 01:53] VITALS: BP 99/42
[2022-12-10] MEDS ORDERED: SODIUM POLYSTYRENE 15 GM/60 ML UDBTL ONE (01:53)
[2022-12-10] MEDS ORDERED: SODIUM POLYSTYRENE 15 GM/60 ML UDBTL PO SCH (01:55)
[2022-12-10] MEDS ORDERED: DEXTROSE 50% 50 ML SYR IVP ONE (01:55)
[2022-12-10] MEDS ORDERED: CALCIUM GLUC 1 GM/50 mL NS BAG 50 ML IV ONE (02:15)
[2022-12-10 02:26] LABS: ANION GAP 30.5 (8-16); CARBON DIOXIDE 12.4 mmol/L (21-32); POTASSIUM 6.9 mmol/L (3.5-5.1)
--- NOTE | 2022-12-10 02:29 | NUR ---
POST CODE BMP ORDERED K+ = 6.9 GLUCOSE = 926 BUN = 92 DR. PAN NOTIFIED
[2022-12-10] MEDS ORDERED: BLOOD GLUCOSE MONITORING 1 DEV DEV FS SCH ×2 (02:40)
[2022-12-10] MEDS ORDERED: DEXTROSE 50% 50 ML SYR IVP SCH (02:45)
[2022-12-10] MEDS ORDERED: CALCIUM CHLORIDE 10% 100 MG/ML SYR IVP SCH (02:55)
[2022-12-10 03:00] VITALS: BP 67/45
[2022-12-10] MEDS ORDERED: PRIMARY CRASH CART TRAY MC ONE (03:36)
[2022-12-10] MEDS ORDERED: ALBUTEROL 0.083% 2.5 MG/3 ML NEBU INH PRN (03:40)
[2022-12-10] MEDS ORDERED: CALCIUM GLUC 1 GM/50 mL NS BAG 50 ML IV SCH (03:45)
[2022-12-10] MEDS ORDERED: ATROPINE 1 MG/10 ML SYR IVP ONE (03:46)
[2022-12-10] MEDS ORDERED: EPINEPHrine PFS 0.1 MG/ML SYR IVP ONE (03:46)
[2022-12-10] MEDS ORDERED: CALCIUM CHLORIDE 10% 100 MG/ML SYR IVP ONE (03:46)
[2022-12-10] MEDS ORDERED: SODIUM BICARBONATE 8.4% PFS 50 MEQ/50 ML SYR IVP ONE (03:46)
[2022-12-10] MEDS ORDERED: CODE BLUE PARTICIPANT 1 EA MISC MC ONE (03:46)
--- NOTE | 2022-12-10 03:46 | NUR ---
TIME OF PER = 0346 = AZAM PAN MD
--- NOTE | 2022-12-10 04:05 | NUR ---
PHONE CALL TO [facility] OFFICE, . SPOKE WITH SOLANGE. SHE WILL ALERT THE CALENDERING MACHINE OPERATOR TO CALL BACK
--- NOTE | 2022-12-10 04:21 | NUR ---
RECEIVED PHONE CALL FROM LEONEL KASPER ([facility] PATIENT CURRENTLY NOT A CANDIDATE, BODY HAS BEEN RELEASED. NO CASE NUMBER ASSIGNED TO PATIENT
--- NOTE | 2022-12-10 04:53 | NUR ---
PHONE CALL TO [facility], ; SPOKE WITH ANSHUL. [id number]
--- NOTE | 2022-12-10 05:10 | NUR ---
PHONE CALL [facility]. HOME CURRENTLY DOES NOT HAVE SPACE TO ACCEPT A NEW INDIGENT PATIENT, THEY ARE FILLED TO [facility]
--- NOTE | 2022-12-10 05:15 | NUR ---
HOSPITAL PLAN ADMINISTRATOR INFORMED THAT [facility] IS UNABLE TO ACCEPT PATIENT. PATIENT WILL BE TRANSFERRED TO [facility]
--- NOTE | 2022-12-10 10:02 | NUR ---
WOUND CARE RE-EVALUATION NOTES: WOUND ASSESSMENT DONE, +2 EDEMA WITH ECCHYMOSIS TO UPPER EXTREMITIES, FLEXI SEAL AND F/C PATENT. POC DISCUSSED WITH PRIMARY RN WALKER AND SALEEM FARLEY RN. INTEGUMENTARY: -SCALP DRY SCAB 1.5X3CM, NOSE DRY SCABS 0.5X0.5CM -RIGHT HALLUX TIP OF TOE 0.5X1CM DTI, LATERAL AND MEDIAL FOOT MULTIPLE DTI WITH LARGEST 5X1CM TO LATERAL FOOT. RIGHT FIRST METATARSAL HEAD BLACK STABLE NECROTIC TISSUE 3X4CM. - RIGHT UPPER PLANTAR FOOT 5 X 7 CM BLACK ESCHAR TISSUE WOUND. ABHI-WOUND SKIN DRY, PEELING. -LEFT HALLUX TIP OF TOE 0.5X0.5CM DTI, LATERAL AND MEDIAL FOOT MULTIPLE DTI WITH LARGEST 3X1CM TO LATERAL FOOT - LEFT MEDIAL DORSAL TO PLANTAR FOOT 4 X 4 CM UN-STAGEABLE WOUND. WOUND BED BLACK, ABHI-WOUND SKIN NON-BLANCHABLE, INTACT. - RIGHT KNEE DRY SCAB 7 X 3 CM. ABHI-WOUND SKIN INTACT. - RLE MULTIPLE SCABS WITH LARGEST 3 X 2 CM. ABHI-WOUND SKIN INTACT. - LEFT KNEE SCAB 5.5 X 3.5 CM. ABHI-WOUND SKIN INTACT. - RIGHT BUTTOCK NON-BLANCHABLE REDNESS 5 X 3CM. ABHI-WOUND SKIN DENUDED. - PERINEAL, BILATERAL GLUTEAL FOLDS AND SCROTAL MOISTURE ASSOCIATED DERMATITIS, DENEUDED SKIN, PERIWOUND RED, INTACT. - LEFT HIP NON-BLANCHABLE REDNESS 10 X 7 X 0 CM. ABHI-WOUND SKIN INTACT. RECOMMENDATIONS: - RIGHT METATARSAL HEAD, RIGHT AND LEFT PLANTARS DRY ESCHAR TISSUE AND BILATERAL FEET MULTIPLE DTI: CLEANSE WITH NS, PAT DRY, COVER WITH SOAKED BETADINE GAUZE, AND WRAP WITH KERLIX ROLL, SECURED WITH TAPE DAILY AND PRN IF SOILED. - BILATERAL KNEES AND RLE SCABS: APPLY BETADINE SWABS BID AND LEAVE BRAZER PRODUCTION LINE - RIGHT BUTTOCK CLEANSE WITH NS, PAT DRY, APPLY Z GUARD AND COVER WITH ISLAND DRESSING DAILY AND PRN IF SOILED. - PERINEAL AND SCROTAL MOISTURE ASSOCIATED DERMATITIS: CLEANSE WITH SOAPY WATER OR NS, PAT DRY, APPLY Z GUARD DAILY AND PRN IF SOILED. - LEFT HIP CLEANSE WITH NS, PAT DRY, APPLY FOAM DRESSING CHANGE Q3 DAYS AND PRN IF SOILED. -PRESSURE REDISTRIBUTION SURFACE THERAPY CATHY ISOFLEX DANEILITO MATTRESS -POSITIONING: TURN AND REPOSITION PATIENT Q 2H OR SOONER USE PILLOWS TO KEEP BONY PROMINENCES FROM DIRECT CONTACT WITH SURFACES USE REPOSITIONING WEDGES TO PROVIDE 30-DEGREE ANGLE FOR SIDE LYING POSITIONS OFFLOADING OR FOAM DRESSING TO ALL TUBING TO PREVENT MEDICAL DEVICES RELATED PRESSURE INJURY -RE-EVALUATING AND MANAGING INCONTINENCE MONITOR SKIN CONDITION DURING POSITION CHANGE DO NOT MASSAGE REDNESS, BONY PROMINENCES FREQUENT ABHI-CARE AND PROVIDE BARRIER CREAMS PRN IF SOILING MOISTURE CONTROL BY OFFER BED ALEXIS/URINAL /ABSORBENT PAD TO WICK AND HOLD MOISTURE KEEP SKIN DRY AND PROTECT FROM FRICTION -MANAGE FRICTION/SHEAR/MOBILITY KEEP HOB AT THE LOWEST LEVEL OF ELEVATION NO MORE THAN 30 DEGREE UNLESS OTHERWISE CONTRAINDICATED USE LIFT SHEET OR TRANSFER DEVICE TO MOVE PATIENT AND PREVENT LATERAL SHEER. PROTECT HEELS, ELBOWS BONY PROMINENCES WITH SKIN BERRIES OR FOAM DRESSING IF EXPOSED TO FRICTION OFFLOAD BILATERAL HEELS BY PLACING PILLOWS UNDER CALVES AT ALL TIMES, UNLESS OTHERWISE CONTRAINDICATED -NUTRITION: PLEASE FOLLOW RD RECOMMENDATIONS AND OFFER NUTRITION SUPPLEMENTS IF ORDERED. Addendum: 12/10/22 at 1359 by Vamshi Low RN ([facility]) ABOVE NOTE LATE ENTRY FOR 12/08/2022 [facility]
--- NOTE | 2022-12-12 14:13 | NUR ---
[employer] called and spoke to Abigail Perry regarding patient and no family to be located. Taylor stated that she will be in to the hospital for finger print the patient to locate the family. Taylor was able to find family contact numbers and name of patient Bennett Boyce. Brother Rocío contact number [phone] Taylor left a message to the sister in law and it was forwarded to Rocío Alford called and spoke to the casework supervisor and requested the doctor to call him.
== END 2022-12-10 03:46 | disposition home or self-care (01) | DRG 720 ==
LOC: MED 23:12 → MTU 11-23 05:28 → EDBD 11-23 05:28 → MTU 11-23 08:09 → MIC 11-23 10:02
PROVIDERS: ADMIT Family Medicine; ATTEND Family Medicine
PROC: 02HV33Z Insertion of Infusion Device into Superior Vena Cava, Percutaneous Approach (ICD-10-PCS; 2022-11-23)
PROC: 5A1D70Z Performance of Urinary Filtration, Intermittent, Less than 6 Hours Per Day (ICD-10-PCS; 2022-11-25)
PROC: 5A1955Z Respiratory Ventilation, Greater than 96 Consecutive Hours (ICD-10-PCS; principal; 2022-11-26)
PROC: 0BH17EZ Insertion of Endotracheal Airway into Trachea, Via Natural or Artificial Opening (ICD-10-PCS; 2022-11-26)
PROC: 5A1D70Z Performance of Urinary Filtration, Intermittent, Less than 6 Hours Per Day (ICD-10-PCS; 2022-11-28)
PROC: 5A1D70Z Performance of Urinary Filtration, Intermittent, Less than 6 Hours Per Day (ICD-10-PCS; 2022-12-01)
PROC: 5A1D70Z Performance of Urinary Filtration, Intermittent, Less than 6 Hours Per Day (ICD-10-PCS; 2022-12-03)
PROC: 5A1D70Z Performance of Urinary Filtration, Intermittent, Less than 6 Hours Per Day (ICD-10-PCS; 2022-12-04)
PROC: 5A1D70Z Performance of Urinary Filtration, Intermittent, Less than 6 Hours Per Day (ICD-10-PCS; 2022-12-06)
PROC: 5A1D70Z Performance of Urinary Filtration, Intermittent, Less than 6 Hours Per Day (ICD-10-PCS; 2022-12-07)
DX: A41.9 Sepsis, unspecified organism (principal); J96.01 Acute respiratory failure with hypoxia; N17.0 Acute kidney failure with tubular necrosis; I33.0 Acute and subacute infective endocarditis; R65.21 Severe sepsis with septic shock; G93.41 Metabolic encephalopathy; E83.51 Hypocalcemia; D63.1 Anemia in chronic kidney disease; E43 Unspecified severe protein-calorie malnutrition; E87.20 Acidosis, unspecified; M62.82 Rhabdomyolysis; E11.65 Type 2 diabetes mellitus with hyperglycemia; Z68.32 Body mass index [BMI] 32.0-32.9, adult; J18.9 Pneumonia, unspecified organism; E87.1 Hypo-osmolality and hyponatremia; I35.8 Other nonrheumatic aortic valve disorders; Z20.822 Contact with and (suspected) exposure to COVID-19; N39.0 Urinary tract infection, site not specified; N18.6 End stage renal disease; B95.61 Methicillin susceptible Staphylococcus aureus infection as the cause of diseases classified elsewhere; J90 Pleural effusion, not elsewhere classified; E11.22 Type 2 diabetes mellitus with diabetic chronic kidney disease; F19.10 Other psychoactive substance abuse, uncomplicated; Z59.00 Homelessness unspecified; I46.9 Cardiac arrest, cause unspecified
CPT/HCPCS: 31500; 36415; 36600; 70450; 71045; 76770; 80048; 80053; 80305; 81001; 82272; 82330; 82550; 82553; 82803; 82948; 83036; 83605; 83690; 83735; 83970; 84100; 84484; 85025; 87040; 87070; 87081; 87086; 87186; 92950; 93005; 93313; 94002; 94003; 94640; 96361; 96365; 96375; 99291; C9113; G0482; J0171; J0461; J0610; J1100; J1644; J1815; J1956; J2060; J2250; J2310; J2370; J2543; J2704; J2997; J3010; J3370; J3480; J3490; J7030; J7060; J7613; J7644; P9041; P9046; Q0092